=== PATIENT | female | born 1930 | race Caucasian/White ===

== ENCOUNTER 2016-04-01 12:00 | Outpatient (CLI) | payer MEDICARE, BC | END 2016-04-01 12:01 | disposition home or self-care (01) | DX: L03.032 Cellulitis of left toe (principal); L30.9 Dermatitis, unspecified; L29.9 Pruritus, unspecified; F01.51 Vascular dementia, unspecified severity, with behavioral disturbance; Z99.3 Dependence on wheelchair; Z51.5 Encounter for palliative care ==

== ENCOUNTER 2016-04-07 13:05 | Outpatient (CLI) | payer MEDICARE, BC | END 2016-04-07 13:06 | disposition home or self-care (01) | DX: L03.032 Cellulitis of left toe (principal); L30.9 Dermatitis, unspecified; L29.9 Pruritus, unspecified; F01.51 Vascular dementia, unspecified severity, with behavioral disturbance; Z51.5 Encounter for palliative care ==

== ENCOUNTER 2016-05-05 | Outpatient (CLI) | payer MEDICARE, BC | END 2016-05-05 11:46 | disposition home or self-care (01) ==

== ENCOUNTER 2016-06-09 12:50 | Outpatient (CLI) | payer MEDICARE, BC | END 2016-06-09 12:51 | disposition home or self-care (01) | DX: Z51.5 Encounter for palliative care (principal); R21 Rash and other nonspecific skin eruption; E11.621 Type 2 diabetes mellitus with foot ulcer; L97.519 Non-pressure chronic ulcer of other part of right foot with unspecified severity; F01.51 Vascular dementia, unspecified severity, with behavioral disturbance; I25.10 Atherosclerotic heart disease of native coronary artery without angina pectoris; Z87.898 Personal history of other specified conditions; I69.318 Other symptoms and signs involving cognitive functions following cerebral infarction; Z99.3 Dependence on wheelchair ==

== ENCOUNTER 2016-06-25 13:45 | Outpatient (CLI) | payer MEDICARE, BC | END 2016-06-25 13:46 | disposition home or self-care (01) | DX: Z51.5 Encounter for palliative care (principal); S90.821A Blister (nonthermal), right foot, initial encounter; X58.XXXA Exposure to other specified factors, initial encounter; R21 Rash and other nonspecific skin eruption; F01.51 Vascular dementia, unspecified severity, with behavioral disturbance; E11.621 Type 2 diabetes mellitus with foot ulcer; L97.529 Non-pressure chronic ulcer of other part of left foot with unspecified severity; I73.9 Peripheral vascular disease, unspecified; I25.10 Atherosclerotic heart disease of native coronary artery without angina pectoris; Z87.898 Personal history of other specified conditions; Z86.73 Personal history of transient ischemic attack (TIA), and cerebral infarction without residual deficits; Z99.3 Dependence on wheelchair ==

== ENCOUNTER 2016-07-02 10:30 | Outpatient (CLI) | payer MEDICARE, BC | END 2016-07-02 23:59 | DX: Z51.5 Encounter for palliative care (principal); S90.821D Blister (nonthermal), right foot, subsequent encounter; S91.102D Unspecified open wound of left great toe without damage to nail, subsequent encounter; S91.105D Unspecified open wound of left lesser toe(s) without damage to nail, subsequent encounter; R21 Rash and other nonspecific skin eruption; R63.4 Abnormal weight loss; R63.0 Anorexia; I73.9 Peripheral vascular disease, unspecified; F01.50 Vascular dementia, unspecified severity, without behavioral disturbance, psychotic disturbance, mood disturbance, and anxiety; I25.10 Atherosclerotic heart disease of native coronary artery without angina pectoris; Z86.73 Personal history of transient ischemic attack (TIA), and cerebral infarction without residual deficits; Z87.898 Personal history of other specified conditions; Z99.3 Dependence on wheelchair ==

== ENCOUNTER 2016-07-17 06:29 | Outpatient (CLI) | payer MEDICARE, BC | END 2016-07-17 06:30 | disposition critical access hospital (66) | DX: M25.551 Pain in right hip (principal); W19.XXXA Unspecified fall, initial encounter; Y92.198 Other place in other specified residential institution as the place of occurrence of the external cause | CPT/HCPCS: A0425; A0429 ==

== ENCOUNTER 2016-07-17 06:51 | Inpatient (IN) | payer MEDICARE, BC ==
[2016-07-17] MEDS ORDERED: MORPHINE 2 MG/ML SYRINGE IVP STA (07:23)
[2016-07-17] MEDS ORDERED: MORPHINE 2 MG/ML SYRINGE ONE (07:31)
[2016-07-17] MEDS ORDERED: ACETAMINOPHEN 325 MG TABLET PO PRN (10:23)
[2016-07-17] MEDS ORDERED: ONDANSETRON 4 MG/2 ML VIAL IVP PRN (10:23)
[2016-07-17] MEDS: MORPHINE 2 MG/ML SYRINGE IVP PRN ×5 (12:48→22:02)
[2016-07-17] MEDS: D5.45NS W/20 MEQ KCL 1,000 ML IV SCH (12:48)
[2016-07-17] MEDS: SODIUM CHLORIDE FLUSH 0.9% 10 ML SYRINGE IVP PRN (12:49)
[2016-07-17] MEDS: SODIUM CHLORIDE FLUSH 0.9% 10 ML SYRINGE IVP SCH ×2 (15:01→20:41)
[2016-07-17] MEDS ORDERED: hydrOXYzine PAMOATE 25 MG CAPSULE PO PRN (16:29)
[2016-07-17] MEDS: metFORMIN 500 MG TABLET PO SCH (17:06)
[2016-07-17] MEDS: HEPARIN 5,000 UNIT/ML VIAL SUBQ SCH (20:34)
[2016-07-17] MEDS: METOPROLOL TARTRATE 25 MG TABLET PO SCH (20:37)
[2016-07-17] MEDS: ATORVASTATIN 10 MG TABLET PO SCH (20:38)
[2016-07-17] MEDS: GABAPENTIN 100 MG CAPSULE PO SCH (20:39)
[2016-07-17] MEDS: DOXEPIN 25 MG CAPSULE PO SCH (20:40)
[2016-07-17] MEDS: INSULIN ASPART 300 UNIT/3 ML PEN SUBQ SCH (20:41)
[2016-07-18] MEDS: D5.45NS W/20 MEQ KCL 1,000 ML IV SCH ×3 (00:12→21:41)
[2016-07-18] MEDS: MORPHINE 2 MG/ML SYRINGE IVP PRN ×4 (01:38→19:58)
[2016-07-18] MEDS: SODIUM CHLORIDE FLUSH 0.9% 10 ML SYRINGE IVP SCH ×3 (05:15→19:59)
[2016-07-18] MEDS ORDERED: metFORMIN 500 MG TABLET PO SCH (08:00)
[2016-07-18] MEDS ORDERED: DOCUSATE SODIUM 250 MG CAPSULE PO ONE (09:00)
[2016-07-18] MEDS ORDERED: FAMOTIDINE 20 MG TABLET PO SCH (09:00)
[2016-07-18] MEDS ORDERED: SENNA 8.6 MG TABLET PO ONE (09:00)
[2016-07-18] MEDS: HEPARIN 5,000 UNIT/ML VIAL SUBQ SCH ×2 (09:03→20:01)
[2016-07-18] MEDS: POLYETHYLENE GLYCOL 3350 17 GM PACKET PO SCH (09:06)
[2016-07-18] MEDS: INSULIN ASPART 300 UNIT/3 ML PEN SUBQ SCH ×4 (09:06→21:41)
[2016-07-18] MEDS: METOPROLOL TARTRATE 25 MG TABLET PO SCH ×2 (09:07→20:01)
[2016-07-18] MEDS: FERROUS SULFATE 325 MG TABLET PO SCH (09:07)
[2016-07-18] MEDS: MULTIVITAMIN TABLET PO SCH (09:07)
[2016-07-18] MEDS: FAMOTIDINE 20 MG TABLET PO SCH (09:07)
[2016-07-18] MEDS: LEVOTHYROXINE 25 MCG TABLET PO SCH (09:07)
[2016-07-18] MEDS: CYANOCOBALAMIN 500 MCG TABLET PO SCH (09:07)
[2016-07-18] MEDS: ASPIRIN EC 81 MG TABLET PO SCH (09:07)
[2016-07-18] MEDS: SERTRALINE 50 MG TABLET PO SCH (09:07)
[2016-07-18] MEDS: ASCORBIC ACID CHEW 500 MG TABLET PO SCH (09:12)
[2016-07-18] MEDS: SODIUM CHLORIDE FLUSH 0.9% 10 ML SYRINGE IVP PRN (09:13)
[2016-07-18] MEDS: metFORMIN 500 MG TABLET PO SCH (16:56)
[2016-07-18] MEDS: ATORVASTATIN 10 MG TABLET PO SCH (20:01)
[2016-07-18] MEDS: GABAPENTIN 100 MG CAPSULE PO SCH (20:02)
[2016-07-18] MEDS: DOXEPIN 25 MG CAPSULE PO SCH (20:02)
[2016-07-19] MEDS: MORPHINE 2 MG/ML SYRINGE IVP PRN ×5 (01:35→20:54)
[2016-07-19] MEDS: D5.45NS W/20 MEQ KCL 1,000 ML IV SCH ×3 (05:13→23:43)
[2016-07-19] MEDS: SODIUM CHLORIDE FLUSH 0.9% 10 ML SYRINGE IVP SCH ×3 (05:14→20:54)
[2016-07-19] MEDS: INSULIN REGULAR HUMAN 100 UNIT/1 ML 10 ML MDV SUBQ SCH ×2 (05:45→12:04)
[2016-07-19] MEDS ORDERED: LACTATED RINGERS 1,000 ML IV ONE ×2 (09:09→10:56)
[2016-07-19] MEDS: FERROUS SULFATE 325 MG TABLET PO SCH (09:32)
[2016-07-19] MEDS: ASCORBIC ACID CHEW 500 MG TABLET PO SCH (09:33)
[2016-07-19] MEDS: FAMOTIDINE 20 MG TABLET PO SCH (09:33)
[2016-07-19] MEDS: CYANOCOBALAMIN 500 MCG TABLET PO SCH (09:33)
[2016-07-19] MEDS: LEVOTHYROXINE 25 MCG TABLET PO SCH (09:33)
[2016-07-19] MEDS: ASPIRIN EC 81 MG TABLET PO SCH (09:33)
[2016-07-19] MEDS: POLYETHYLENE GLYCOL 3350 17 GM PACKET PO SCH (09:34)
[2016-07-19] MEDS: MULTIVITAMIN TABLET PO SCH (09:34)
[2016-07-19] MEDS: METOPROLOL TARTRATE 25 MG TABLET PO SCH ×2 (09:34→20:49)
[2016-07-19] MEDS: HEPARIN 5,000 UNIT/ML VIAL SUBQ SCH (09:34)
[2016-07-19] MEDS: SERTRALINE 50 MG TABLET PO SCH (09:35)
[2016-07-19] MEDS ORDERED: BUPIVACAINE 0.25%-EPI 1:200000 PF 30 ML VIAL SUBQ ONE ×2 (09:59→11:00)
[2016-07-19] MEDS ORDERED: ONDANSETRON 4 MG/2 ML VIAL IVP ONE (10:05)
[2016-07-19] MEDS ORDERED: ROCURONIUM 50 MG/5 ML VIAL IVP ONE (10:05)
[2016-07-19] MEDS ORDERED: ceFAZolin 1 GM VIAL IV ONE (10:05)
[2016-07-19] MEDS ORDERED: hydrALAZINE INJ 20 MG/ML VIAL IVP ONE (10:05)
[2016-07-19] MEDS ORDERED: PROPOFOL 200 MG/20 ML VIAL IVP ONE (10:05)
[2016-07-19] MEDS ORDERED: TRANEXAMIC ACID 1,000 MG/10 ML VIAL IV ONE (10:05)
[2016-07-19] MEDS ORDERED: ACETAMINOPHEN 1,000 MG/100 ML VIAL IV ONE (10:05)
[2016-07-19] MEDS ORDERED: ePHEDrine 50 MG/ML AMP IVP ONE (10:05)
[2016-07-19] MEDS ORDERED: fentaNYL 100 MCG/2 ML VIAL IVP ONE (10:05)
[2016-07-19] MEDS ORDERED: MIDAZOLAM 2 MG/2 ML VIAL IVP ONE (10:05)
[2016-07-19] MEDS ORDERED: METOPROLOL 5 MG/5 ML VIAL IVP ONE (10:05)
[2016-07-19] MEDS ORDERED: LIDOCAINE-MPF 2% 5 ML VIAL IM ONE (10:05)
[2016-07-19] MEDS ORDERED: SUCCINYLCHOLINE 200 MG/10 ML VIAL IVP ONE (10:05)
[2016-07-19] MEDS ORDERED: ONDANSETRON 4 MG/2 ML VIAL IVP PRN (11:22)
[2016-07-19] MEDS ORDERED: PROCHLORPERAZINE 10 MG/2 ML VIAL IVP PRN (11:22)
[2016-07-19] MEDS: SODIUM CHLORIDE FLUSH 0.9% 10 ML SYRINGE IVP PRN ×4 (12:24→20:07)
[2016-07-19] MEDS: CIPROFLOXACIN 400 MG/200 ML 200 ML IV SCH (16:16)
[2016-07-19] MEDS: ceFAZolin 2 GM/50 ML 50 ML IV SCH (20:05)
[2016-07-19] MEDS: ATORVASTATIN 10 MG TABLET PO SCH (20:51)
[2016-07-19] MEDS: GABAPENTIN 100 MG CAPSULE PO SCH (20:52)
[2016-07-19] MEDS: DOXEPIN 25 MG CAPSULE PO SCH (20:52)
[2016-07-19] MEDS: INSULIN ASPART 300 UNIT/3 ML PEN SUBQ SCH (20:55)
[2016-07-19] MEDS ORDERED: INSULIN REGULAR HUMAN 100 UNIT/1 ML 10 ML MDV SUBQ SCH (21:00)
[2016-07-20] MEDS: MORPHINE 2 MG/ML SYRINGE IVP PRN ×5 (00:31→20:30)
[2016-07-20] MEDS: ceFAZolin 2 GM/50 ML 50 ML IV SCH (04:07)
[2016-07-20] MEDS: CIPROFLOXACIN 400 MG/200 ML 200 ML IV SCH (04:56)
[2016-07-20] MEDS: SODIUM CHLORIDE FLUSH 0.9% 10 ML SYRINGE IVP SCH ×3 (05:17→20:09)
[2016-07-20] MEDS: SENNA 8.6 MG TABLET PO SCH (08:40)
[2016-07-20] MEDS: FERROUS SULFATE 325 MG TABLET PO SCH (08:40)
[2016-07-20] MEDS: METOPROLOL TARTRATE 25 MG TABLET PO SCH ×2 (08:40→20:09)
[2016-07-20] MEDS: LEVOTHYROXINE 25 MCG TABLET PO SCH (08:40)
[2016-07-20] MEDS: POLYETHYLENE GLYCOL 3350 17 GM PACKET PO SCH (08:40)
[2016-07-20] MEDS: CYANOCOBALAMIN 500 MCG TABLET PO SCH (08:41)
[2016-07-20] MEDS: ASPIRIN EC 81 MG TABLET PO SCH (08:41)
[2016-07-20] MEDS: FAMOTIDINE 20 MG TABLET PO SCH (08:41)
[2016-07-20] MEDS: ASCORBIC ACID CHEW 500 MG TABLET PO SCH (08:41)
[2016-07-20] MEDS: SERTRALINE 50 MG TABLET PO SCH (08:41)
[2016-07-20] MEDS: MULTIVITAMIN TABLET PO SCH (08:41)
[2016-07-20] MEDS: DOCUSATE SODIUM 250 MG CAPSULE PO SCH (08:50)
[2016-07-20] MEDS: INSULIN ASPART 300 UNIT/3 ML PEN SUBQ SCH ×4 (08:54→20:15)
[2016-07-20] MEDS: ACETAMINOPHEN 1,000 MG/100 ML 100 ML IV PRN ×2 (08:58→16:48)
[2016-07-20] MEDS ORDERED: LACTULOSE 10 GM /15 ML UDC PO ONE (14:45)
[2016-07-20] MEDS: D5.45NS W/20 MEQ KCL 1,000 ML IV SCH (14:54)
[2016-07-20] MEDS: ATORVASTATIN 10 MG TABLET PO SCH (20:08)
[2016-07-20] MEDS: DOXEPIN 25 MG CAPSULE PO SCH (20:08)
[2016-07-20] MEDS: GABAPENTIN 100 MG CAPSULE PO SCH (20:08)
[2016-07-21] MEDS: AMOXICILLIN 250 MG CAPSULE PO SCH ×3 (00:19→12:45)
[2016-07-21] MEDS: D5.45NS W/20 MEQ KCL 1,000 ML IV SCH ×2 (00:28→11:20)
[2016-07-21] MEDS: MORPHINE 2 MG/ML SYRINGE IVP PRN (06:21)
[2016-07-21] MEDS: SODIUM CHLORIDE FLUSH 0.9% 10 ML SYRINGE IVP SCH ×2 (06:21→12:02)
[2016-07-21] MEDS: SODIUM CHLORIDE FLUSH 0.9% 10 ML SYRINGE IVP PRN (06:22)
[2016-07-21] MEDS: ACETAMINOPHEN 1,000 MG/100 ML 100 ML IV PRN (07:36)
[2016-07-21] MEDS: ASPIRIN EC 81 MG TABLET PO SCH (08:00)
[2016-07-21] MEDS: MULTIVITAMIN TABLET PO SCH (08:01)
[2016-07-21] MEDS: ASCORBIC ACID CHEW 500 MG TABLET PO SCH (08:01)
[2016-07-21] MEDS: FAMOTIDINE 20 MG TABLET PO SCH (08:01)
[2016-07-21] MEDS: LEVOTHYROXINE 25 MCG TABLET PO SCH (08:01)
[2016-07-21] MEDS: FERROUS SULFATE 325 MG TABLET PO SCH (08:01)
[2016-07-21] MEDS: INSULIN ASPART 300 UNIT/3 ML PEN SUBQ SCH ×2 (08:02→12:02)
[2016-07-21] MEDS: CYANOCOBALAMIN 500 MCG TABLET PO SCH (08:02)
[2016-07-21] MEDS: DOCUSATE SODIUM 250 MG CAPSULE PO SCH (08:02)
[2016-07-21] MEDS: SENNA 8.6 MG TABLET PO SCH (08:02)
[2016-07-21] MEDS: METOPROLOL TARTRATE 25 MG TABLET PO SCH (08:02)
[2016-07-21] MEDS: POLYETHYLENE GLYCOL 3350 17 GM PACKET PO SCH (08:03)
[2016-07-21] MEDS: SERTRALINE 50 MG TABLET PO SCH (08:07)
== END 2016-07-21 14:00 | DRG 481 ==
PROC: 0QS606Z Reposition Right Upper Femur with Intramedullary Internal Fixation Device, Open Approach (ICD-10-PCS; principal; 2016-07-19 09:00)
DX: S72.141A Displaced intertrochanteric fracture of right femur, initial encounter for closed fracture (principal); N39.0 Urinary tract infection, site not specified; D64.9 Anemia, unspecified; E78.00 Pure hypercholesterolemia, unspecified; F01.50 Vascular dementia, unspecified severity, without behavioral disturbance, psychotic disturbance, mood disturbance, and anxiety; I25.10 Atherosclerotic heart disease of native coronary artery without angina pectoris; E11.9 Type 2 diabetes mellitus without complications; W18.30XA Fall on same level, unspecified, initial encounter; K21.9 Gastro-esophageal reflux disease without esophagitis; B96.20 Unspecified Escherichia coli [E. coli] as the cause of diseases classified elsewhere; I10 Essential (primary) hypertension; Z16.23 Resistance to quinolones and fluoroquinolones; N28.9 Disorder of kidney and ureter, unspecified; E03.9 Hypothyroidism, unspecified; F32.9 Major depressive disorder, single episode, unspecified; L29.9 Pruritus, unspecified; I25.2 Old myocardial infarction; Z91.81 History of falling; Y93.9 Activity, unspecified; Y92.129 Unspecified place in nursing home as the place of occurrence of the external cause; Y99.9 Unspecified external cause status; Z79.02 Long term (current) use of antithrombotics/antiplatelets; Z79.82 Long term (current) use of aspirin; Z79.84 Long term (current) use of oral hypoglycemic drugs; Z87.891 Personal history of nicotine dependence; Z87.898 Personal history of other specified conditions; Z86.73 Personal history of transient ischemic attack (TIA), and cerebral infarction without residual deficits; Z99.3 Dependence on wheelchair; Z66 Do not resuscitate

== ENCOUNTER 2016-07-21 14:10 | Outpatient (CLI) | payer MEDICARE, BC | END 2016-07-21 14:11 | DX: R53.1 Weakness (principal); F03.90 Unspecified dementia, unspecified severity, without behavioral disturbance, psychotic disturbance, mood disturbance, and anxiety; M25.551 Pain in right hip; Z98.890 Other specified postprocedural states | CPT/HCPCS: A0425; A0428 ==

== ENCOUNTER 2016-08-04 13:30 | Outpatient (CLI) | payer BC, MEDICARE, OTHER | END 2016-08-04 23:59 | disposition home or self-care (01) | LOC: LAB.R 13:30 | PROVIDERS: ATTEND Internal Medicine | DX: A04.7 Enterocolitis due to Clostridium difficile (principal) | CPT/HCPCS: 87493 ==

== ENCOUNTER 2016-08-07 10:15 | Outpatient (CLI) | payer MEDICARE, BC ==
--- NOTE | 2016-08-11 07:00 | CONSULTATION NOTE ---
DATE OF CONSULTATION: 08/07/2016 00:00:00 REQUESTING PROVIDER: STEPHANIE Castellano TIME OF VISIT: 10:15 to 11 a.m. The patient is seen at [facility], where she is currently housed secondary to a hip fracture. It is a taxing and considerable effort for her to leave the home. I was contacted by the long-term, as patient has been doing poorly, to clarify regarding goals of care. BRIEF HISTORY OF PRESENT ILLNESS: This is a spunky 85-year-old woman, with vascular dementia with etiology most likely severe alcohol abuse, coronary artery disease with small frequent strokes. She is well known to me, as I have been following her over in [facility], which is a dementia unit, since 12/2015. The patient had a non-witnessed ground-level fall on 07/17/2016, which resulted in a right intertrochanteric hip fracture. She did on 07/18/2016 have a open reduction internal fixation with pinning after consultation with her brother, Boaz Johnson, who is her durable power of health care attorney for medical care. Prior to her discharge, she was found to have an E coli UTI and was discharged on Augmentin over to the long-term for rehabilitation. The patient did not return back to [facility], as they are not set up to do postoperative care. She has been working with PT/OT to regain back her previous level of functioning, which was wheelchair mobility, but she was able to stand and transfer and pivot with cueing with the facility staff. Unfortunately, as a result of her hospitalization, hip fracture, and antibiotics, the patient did develop C diff. For the last several days, she has had ongoing liquid stools, which are starting to respond to the Flagyl. She has had poor appetite and weight loss despite Med Pass twice a day. Her baseline weight prior to hospitalization was 157, today she is weighing in at 144.4. In asking the patient, who is able to respond, she reports she does not feel good. She reports things do not taste good and that she is not hungry. She holds her head and seems in some distress. She does not appear to recognize me, though I look familiar. She is able and willing to interact with me for a physical exam. She does seem quite a bit weaker. Her voice is more quiet. Her sentences are less formed. She usually can carry on somewhat of a social banter; she is quite quiet today, she can answer yes/no, and she seems a little bit more "befuddled" than usual exams with me and her. She has had longstanding issues with rashes and pruritus and these continue to plague her here at her current setting. Unfortunately they had discontinued doxepin but have restarted that. She does have some scratch gracia from scratching on her upper chest area and forearms. SYMPTOM BURDEN: The patient denies pain. She is on [id number] Tylenol twice a day. She has been cooperative with staff. She has not seemed anxious, though she has been a little bit more withdrawn; unclear if this is depression or not for her. Her intake has diminished, and she does seem quite fatigued. On noting her labs on discharge from the hospital, her hemoglobin was 26 and her hematocrit 8.9. Her sodium was 138 and potassium 4.2. She has had a history of hyponatremia. REVIEW OF SYSTEMS This is somewhat limited by the patient's ability to participate, and she is in a long term facility; this is mostly obtained from staff. HEENT: No observed difficulty with choking, though she has decreased intake, has needed cueing and assistance for eating. Mild hearing loss. GASTROINTESTINAL: Stools are starting to form up. She is incontinent both of stool and urine; has been recently treated for a urinary tract infection. MUSCULOSKELETAL: She is overall weak. She does need maximum 2-person assist from sitting to standing, and transfer to the commode. She has been wheelchair bound here as well. INTEGUMENTARY: As noted above. NEUROLOGIC: She does appear to have some diminished cognitive abilities compared to baseline; it is unclear if this is because of how she is feeling, or if there are some changes. PSYCHIATRIC: She is somewhat withdrawn today. ENDOCRINE: She has underlying diabetes. Her blood sugars have been fairly well controlled, a little on the higher side. She is off her Tradjenta. PHYSICAL EXAMINATION GENERAL APPEARANCE: She does appear somewhat pale, and with temporal wasting today. She is willing to engage in conversation. HEENT: Eyes slightly dull, difficulty focusing, some periorbital edema. ENT: Her tongue is bright red, scattered with a few white dots; does report it is uncomfortable for her. Some buccal redness as well. Suspect some candidiasis. RESPIRATORY: Her breath sounds are diminished but clear. VITAL SIGNS: Her temperature is 96.8, O2 saturations on room air 98%, pulse 93, blood pressure 122/72. ABDOMEN: Soft, slightly tender to palpation. SKIN: As noted above; also has a chronic wound ulcer about 0.5 cm on her second toe. It is bright, shiny, and filled in currently. No signs or symptoms of infection. It is a very thin epithelial covering over the usual open ulcer. On her right top of her foot is probably about a 3 x 4 cm, approximately, blood blister, open area. This has been longstanding, as well. What happens is she gets blisters and they pop and has been dealing with this for several weeks to months now. It has responded in the past to Silvadene dressing changes. EXTREMITIES: Her hands and feet are quite cool to touch. She has no lower extremity edema today. IMPRESSION: This is an 85-year-old woman, with longstanding vascular dementia, who was most recently hospitalized for an acute hip fracture. She does appear to have had both physical and cognitive decline resulting from this episode. She has also had the sequelae of antibiotic therapy with oral candidiasis and Clostridium difficile. She has had about an 8% to 9% weight loss, and concern for her is certainly a failure to thrive. RECOMMENDATIONS/COUNSELING DONE 1. Protein-calorie malnutrition. Patient presenting with weight loss. We will go ahead and increase her Med Pass 2.0 from 60 mL b.i.d. to t.i.d. 2. Oral candidiasis. The patient does have a prolonged QTc. We will go ahead and just put her on nystatin swish and swallow t.i.d., secondary to the difficulty getting her to cooperate at times, for 10 days to see if this improves her taste and ability to engage in eating. 3. Rash secondary to unknown etiology. She has been restarted on her doxepin. I will go ahead and cycle through her triamcinolone0.5% ointment; this does sometimes help, has helped in the past. We will have them apply to her active rash on her upper chest and arms b.i.d. for 2 weeks, then rotate it back up to the Eucerin. They are lotioning her other areas of dry skin. 4. Right foot blister on top of her foot. We will go ahead and re-initiate the Silvadene, washing with wound cleanser daily, apply Silvadene ointment, and cover with gauze. This has healed this up several times in the past. 5. Status post right hip fracture. It is unclear as far as her pain level, though certainly could be playing into some of her discomfort. We will go ahead and increase her acetaminophen up to 3 times a day. 6. Anemia, unspecified. This is unclear if it is related to blood loss or her longstanding anemia of chronic disease. She has been on B12 and iron in the past ; I will go ahead and check her labs next week, as well as followup on her history of hyponatremia. 7. Failure to thrive. The patient is doing better the last 24 hours on the Flagyl with the Clostridium difficile resolving, hopefully she will continue to improve. I have left a message for her brother to follow up on weighing the benefits and burdens for clarifying goals if patient continues to decline. I will await his call, as far as setting further goals of care. Time spent 45 minutes, with greater than 50% of this weighing benefits and burdens of different treatment options, as well as following up with staff regarding patient's underlying chronic health issues including pruritus and skin , foot ulcers, and anticipatory guidance. JOB #: [id number] EXT JOB #:[id number] ADDENDUM: Spoke SALVADOR Johnson this afternoon 08/11/2016. He understands his sister is doing poorly, he feels her vitality has been diminishing, the hip fracture just another symptom, has been more distracted the last couple of visits and feels she has been turning inwards. She is expected to transfer back to [facility], understands it is a watch and wait. Discussed part of the role of palliative care is to focus on things that might make her more comfortable, and at the appropriate time as she is declining to transition her over to hospice. In alignment with this, will get labs to get a sense of where she is with her physical well being given her weight loss and hx of anemia and hyponatremia, in agreement. Plan will see in [facility] next week. LAVINIA
== END 2016-08-07 10:16 | disposition home or self-care (01) ==
LOC: PC 10:15
PROVIDERS: ATTEND Nurse Practitioner Adult Health
DX: Z51.5 Encounter for palliative care (principal); E46 Unspecified protein-calorie malnutrition; B37.0 Candidal stomatitis; T36.0X5A Adverse effect of penicillins, initial encounter; R21 Rash and other nonspecific skin eruption; S72.141D Displaced intertrochanteric fracture of right femur, subsequent encounter for closed fracture with routine healing; S90.821A Blister (nonthermal), right foot, initial encounter; X58.XXXA Exposure to other specified factors, initial encounter; D64.9 Anemia, unspecified; F01.50 Vascular dementia, unspecified severity, without behavioral disturbance, psychotic disturbance, mood disturbance, and anxiety; R62.7 Adult failure to thrive; A04.7 Enterocolitis due to Clostridium difficile; L97.501 Non-pressure chronic ulcer of other part of unspecified foot limited to breakdown of skin; I25.10 Atherosclerotic heart disease of native coronary artery without angina pectoris; Z87.898 Personal history of other specified conditions; Z99.3 Dependence on wheelchair; Z87.440 Personal history of urinary (tract) infections; Z86.73 Personal history of transient ischemic attack (TIA), and cerebral infarction without residual deficits; E11.621 Type 2 diabetes mellitus with foot ulcer
CPT/HCPCS: 99310

== ENCOUNTER 2016-08-12 14:38 | Outpatient (CLI) | payer BC, MEDICARE, OTHER ==
[2016-08-12 09:40] LABS: BASOPHILS # (AUTO) 0.1 10^3/uL (0.0-0.1); BASOPHILS % (AUTO) 0.9 %; EOSINOPHILS # (AUTO) 1.4 10^3/uL (0.0-0.7); EOSINOPHILS % (AUTO) 11.5 %; HCT - HEMATOCRIT 36.6 % (37.0-47.0); HGB - HEMOGLOBIN 12.1 g/dL (12.0-16.0); LYMPHOCYTES # (AUTO) 2.1 10^3/uL (1.5-3.5); LYMPHOCYTES % (AUTO) 17.7 %; MEAN CORPUSCULAR HEMOGLOBIN 31.6 pg (27.0-31.0); MEAN CORPUSCULAR HGB CONC 33.1 g/dL (32.0-36.0); MEAN CORPUSCULAR VOLUME 95.3 fL (81.0-99.0); MONOCYTES % (AUTO) 8.8 %; NEUTROPHILS # (AUTO) 7.2 10^3/uL (1.5-6.6); NEUTROPHILS % (AUTO) 61.1 %; NUCLEATED RED BLOOD CELLS AUTO 0.1 /100WBC; RED BLOOD COUNT 3.84 10^6/uL (4.20-5.40); RED CELL DISTRIBUTION WIDTH 16.9 % (12.0-15.0); UNCORRECTED WHITE BLOOD COUNT 11.8 x10^3/uL; WHITE BLOOD COUNT 11.8 x10^3/uL (4.8-10.8)
[2016-08-12 09:49] LABS: BILIRUBIN,TOTAL 0.5 mg/dL (0.2-1.0); CALCIUM 9.2 mg/dL (8.5-10.3); CREATININE 0.7 mg/dL (0.4-1.0); POTASSIUM 3.8 mmol/L (3.5-5.0); TOTAL PROTEIN 6.7 g/dL (6.7-8.2)
== END 2016-08-12 14:39 | disposition home or self-care (01) ==
LOC: LAB.R 14:38
DX: D64.9 Anemia, unspecified (principal)
CPT/HCPCS: 80053; 85025

== ENCOUNTER 2016-08-18 11:00 | Outpatient (CLI) | payer MEDICARE, BC ==
--- NOTE | 2016-08-19 08:57 | CONSULTATION NOTE ---
DATE OF CONSULTATION: 08/18/2016 00:00:00 REQUESTING PROVIDER: Jasmin Ball PA-C. TIME OF VISIT: . The patient is seen at [facility], which is her home setting. It is an assisted living facility that is a dementia unit. It is a taxing and considerable effort for her to leave the home. BRIEF HISTORY OF PRESENT ILLNESS: This is an 85-year-old woman with vascular dementia with etiology m ost likely severe alcohol abuse, coronary artery disease, history of small frequent strokes. The feliciano ent had an unwitnessed ground fall on 07/17/2016 which resulted in a right trochanter hip fracture, f or which she had an open reduction internal fixation with pinning on 07/18/2016. On discharge from [facility] on 07/21/2016 she was discharged to [facility]. Unfortunately, at that point in time she had E-coli UTI for which she was on treatment for Augmentin which left her with the sequela of Clostridiu m difficile. Currently, she has finished her Flagyl, but continues to feel poorly. Since her return t o the facility mid week, she continues to be weak, fatigued, has had poor appetite and has been a lit tle bit more confused. The patient herself reports she is not sleeping well. She denies any pain at t he time of visit, but is on around the clock Tylenol. Just previous to our exam, she had had a fall, was found on the floor with her back against the foot of her bed. She had no visible traumatic injuri es. She is a 2-person assist now with transfers and previously she was weightbearing. In review with the staff they report she did not eat but took fluids this a.m. Continues to be weak. Her bowels have moved recently. No vomiting, but has had decreased intake. The patient does admit to depression, though she is unable to verbalize what is going on. She reports she feels a little bit be tter, but still feels poorly. I had seen her in the detention on 08/07/2016. She was doing poorly at that point in time as well, less clear with her sentences and more confused. She does appear a lit tle bit improved from our last interaction, but remains quite frail and fragile. REVIEW OF SYSTEMS: This is limited by the patient's ability to participate. HEENT: She has had decreased intake, though her weight has remained stable from discharge on [facility] at 144.2. GASTROINTESTINAL: She had a bowel movement yesterday. No further loose stool. She is incontinent of b oth urine and stool. MUSCULOSKELETAL: She is overall weak. She continues to be a maximum 2-person assist. Previous to her fall, she was able to transfer with just cuing. She has remained mostly wheelchair bound. INTEGUMENTARY: She reports the itching is less. NEUROLOGIC: She just appears much more slow, difficulty with answering questions and nods off to slee p quite easily. PSYCHIATRIC: She does admit to depression and does appear somewhat withdrawn. ENDOCRINE: She did have her blood sugars taken for a week and they remained in the 120-160 range. PHYSICAL EXAMINATION: GENERAL APPEARANCE: She does appear somewhat pale, does have some temporal wasting, does nod off quit e frequently during the exam. EYES: Slightly dull, difficulty focusing, some periorbital edema. ENT: Her tongue is beefy red. No further signs or symptoms of candidiasis, though does appear dry. RESPIRATORY: The patient does have difficulty taking deep breath, her breath sounds appear to be dimi nished but clear. No wheezing, rhonchi, or crackles appreciated. VITAL SIGNS: Temperature is 96.8, pulse 83 and regular. O2 saturation on room air 97%, blood pressure was 100/60. ABDOMEN: Bowel tones positive. SKIN: Her rash has abated dramatically, no raised pustules, does appear to be much improved. Her smal l chronic wound ulcer on her second toe appears to have healed on the right of her top right foot and the area is filled in, no moist skin noted at this point it is about a 2 x 3 cm area, it was previou sly appeared to be a blood blister. Dressing has not been changed since 08/10/2016. EXTREMITIES: Her hands and feet were cool to touch. She has no lower extremity edema. IMPRESSION: This is an 85-year-old woman with longstanding vascular dementia, most recently hospitali [facility] for an acute hip fracture. She does appear to have both physical and cognitive decline resulting from this episode. She has had about 8-9% weight loss and concern remains for failure to thrive. RECOMMENDATIONS/COUNSELING DONE: 1. Asked them to monitor daily weights and encourage intake and fluids. She is getting Ensure twice a day. We will go ahead and monitor her success on this. 2. Oral candidiasis, as this does appear to have resolved. 3. Rash secondary to underlying unknown etiology. She has restarted on her doxepin at bedtime. This h as appeared to have helped with the pruritus. I will go ahead and discontinue the triamcinolone at th is point in time and move on to the Eucerin. 4. Right foot blister on top of foot. Did remind them to continue with the Silvadene dressing ointmen t changes daily until resolved. I suspect this is only a few more days. 5. Status post right hip fracture. It does seem to have affected her baseline functioning. She has a maximum 2-person assist from her previous ability to independently pivot. It is unclear if they are g oing to continue with physical therapy. She would probably benefit from some strengthening to make he r transfers more safe and maintain what little functional status she has. 6. Failure to thrive. The patient continues to be very fragile. She has finished her Flagyl and antib iotics. The patient is certainly at risk for the sequela of a recurrent infection. Currently, though, will monitor her for the next week. She does have followup with her orthopaedic surgeon this week as well. I did leave a message for DPOA, Boaz Johnson, just in followup. TIME SPENT: Forty-five minutes with greater than 50% of this [facility] her [facility] setting. Followup with staff regarding the patient's underlyin g chronic health issues including skin, foot ulcers and anticipatory guidance. JOB #: [id number] EXT JOB #:[id number]
== END 2016-08-18 11:01 | disposition home or self-care (01) ==
LOC: PC 11:00
PROVIDERS: ATTEND Nurse Practitioner Adult Health
DX: Z51.5 Encounter for palliative care (principal); R21 Rash and other nonspecific skin eruption; S90.821D Blister (nonthermal), right foot, subsequent encounter; R62.7 Adult failure to thrive; F01.50 Vascular dementia, unspecified severity, without behavioral disturbance, psychotic disturbance, mood disturbance, and anxiety; Z98.890 Other specified postprocedural states; R53.1 Weakness; F32.9 Major depressive disorder, single episode, unspecified; R15.9 Full incontinence of feces; R32 Unspecified urinary incontinence; Z99.3 Dependence on wheelchair

== ENCOUNTER 2016-09-07 13:30 | Outpatient (CLI) | payer MEDICARE, BC ==
--- NOTE | 2016-09-08 05:58 | CONSULTATION NOTE ---
DATE OF CONSULTATION: 09/07/2016 00:00:00 REQUESTING PROVIDER: Jasmin Ball PA-C TIME OF VISIT 1320 to 1405 hours. The patient is seen in her home setting, which is assisted living facility at the dementia unit. It i s a taxing and considerable effort for her to leave the home. Records reviewed from facility. History obtained from patient and nursing staff. EXAMINATION LIMITATIONS: Patient with vascular dementia and language barrier. HISTORY OF PRESENT ILLNESS UPDATE: This is an 85-year-old with vascular dementia, etiology most likel y severe alcohol abuse, coronary artery disease, and history of small frequent strokes. She had an un witnessed ground fall on 07/17/2016, fracturing her right hip trochanter and underwent an ORIF on 08/2016. She was discharged to [facility] correction facility for rehabilitation, and was also reji christiano for a UTI. She subsequently had been infected with C difficile, treated with Flagyl, and has curr ently no other signs of infection or C difficile. The sequelae of various medical situations and reji tments increased fatigue and weakness, along with feelings of depression, with loss of appetite and s ubsequent weight loss. Her weight has remained stable at around 140 pounds. She was started on 2016 on mirtazapine 7.5 mg and then increased to 15 mg, and since that time has had no further weight loss. She does report that her depression is better. Her pain is okay, though she does feel some isha n in her right foot, which is chronic, connected to the recurrent wound on her dorsal surface. She al so has some numbness of both feet. She suffers from chronic insomnia and says that it has worsened ov er the past few weeks. Nursing staff report her nutritional intake remains low, has been her norm the past several weeks, sh e is eating about 25% less. She is encouraged to drink her Ensure twice a day, but she reports she do es not like it. Despite continuing low appetite, she appears much more energetic, alert, and talkativ e than at her previous visit on 08/18/2016 and appears closer back to her baseline. She states she do es feel better. SOCIAL SITUATION: She does live in assisted living, has been supported at [facility] for several years now. Her support system is her brother, Boaz Johnson, who is her DPO medical lacquer sizer. REVIEW OF SYSTEMS This is limited by the patient's ability to participate, overall, this has also been added to with [facility] [place] staff. CONSTITUTIONAL: Reports poor appetite and weight loss which has destabilized. GASTROINTESTINAL: Denies abdominal pain, constipation, diarrhea, nausea, or vomiting. GENITOURINARY: Denies dysuria. NEUROLOGIC: Does report numbness, both feet. PSYCHIATRIC: Reports depression has improved. All other systems were reviewed and negative, as it is limited by her ability to participate. PHYSICAL EXAMINATION VITAL SIGNS: Temperature 96.8, pulse 81, blood pressure 120/70. GENERAL APPEARANCE: Positive, no acute signs of distress, and quite alert. HEENT: Pharynx is normal. No signs of dehydration. No signs or symptoms of oral lesions. NECK: No JVD. Trachea is midline. RESPIRATORY: No respiratory distress. Breath sounds diminished in bilateral lower lobes. No crackles, wheezing, or rhonchi. CARDIOVASCULAR: Regular rate and rhythm. ABDOMEN: Nontender. No organomegaly. Abnormal bowel sounds, slightly hypoactive. SKIN: Currently her rash is resolved. Previous rash on both her thorax and extremities. Bilateral ski n on her extremities is cold to touch, and as well she does have healing blistered area that is disco lored, but no further signs of alteration of the skin integrity, other than color. EXTREMITIES: Left lower extremity is cold to touch. NEUROLOGIC/PSYCHIATRIC: Mood is pleasant. She is talkative and alert, wanting to participate in the c onversation; again improved. MEDICATIONS ALLERGIES The patient's allergies: 1. VOLTAREN. 2. METOCLOPRAMIDE. 3. IODINE. 4. DILTIAZEM. 5. CALCIUM CHANNEL-BLOCKERS. 6. BRILLIANT BLUE FCF. CURRENT MEDICATION List includes: 1. Acetaminophen 325 mg 2 tabs t.i.d. 2. Clopidogrel 75 mg daily. 3. Doxepin 25 mg at bedtime. 4. Ensure liquids 1 can b.i.d. 5. Ranitidine 40 mg 0.5 tabs daily. 6. Levothyroxine 50 mcg daily. 7. Metformin 500 mg in the morning, 1000 mg in the evening. 8. Metoprolol tartrate 25 mg half tab b.i.d. 9. Antacid 30 mL q.4 hours p.r.n. complaints of stomach pain and heartburn. 10. Bisacodyl suppository 10 mg daily p.r.n. 11. Hydrocodone/APAP 5/325 mg half tab every 4 hours as needed for breakthrough pain. 12. Hydroxyzine 25 mg q.6 hours as needed for itching. 13. Loperamide 2 mg 2 tabs after initial loose stools, then 1 tab after each loose stool, up to 8 in 24 hours. 14. Milk of mag 30 mL p.r.n. constipation. 15. Nitrostat 0.4 mg 1 tablet sublingual every 5 minutes as needed for chest pain, up to 3 doses. 16. Mirtazapine 15 mg daily. 17. Multivitamin daily. 18. Eucerin applied to back and legs b.i.d. daily. 19. Triamcinolone 0.5% cream 2 times daily before and after bedtime any areas of irritation. CODE STATUS: The patient has a POLST, which is DO NOT ATTEMPT RESUSCITATION, COMFORT MEASURES ONLY. SYMPTOM BURDEN: Her pain does remain improved; does not complain of hip pain, just some tenderness in her lower extremities. Drowsiness/sedation: Does not appear to have any. Denies nausea. Depression: Reports feels better. No depressive symptoms, more energy, and readily participates in conversation a nd exam. Anxiety: No signs and symptoms. Dyspnea: Denies. Anorexia: Moderate; she has had some weight loss, though it does appear stable. Nursing reports 25% or less of her meals eaten. Insomnia: Report s sleeps poorly. Her chronic insomnia is worsened, difficulty falling asleep. Denies constipation. Fe elings of well-being and perceived quality of life are improved. PERFORMANCE STATUS: Previously when I saw patient on discharge from [facility], she was much more fatigu ed, unresponsive to conversation, depressed mood; was a 2-person assist for transfers. Currently is m oving towards getting Home Health Physical Therapy to start to try and strengthen lower extremities f or independent transfers with cueing and to evaluate for appropriate home exercise program. DISCUSSION: I did speak with SALVADOR Paredes; he has not visited her recently. Noted that during the visit though several weeks ago, she was turning "inward;" was relieved to hear today that she wa s alert and doing well. By her own report, it has been a while since he had visited her. He did notic e, though, at his last visit that she had difficulty swallowing and had the food just remaining in he r mouth. This is not reported by nursing staff at this point in time. IMPRESSION: An 86-year-old woman with longstanding vascular dementia, recent hip fracture surgery wit h complicated recovery. Today she appears improved with less depression and increased alertness. Her recent weight loss appears to have positively reacted to mirtazapine, with weight remaining stable at around 140 pounds. She is expecting physical therapy to begin tomorrow with the goal of improving pi vot and transferring. The pain is currently under control, though with some complaint of numbness in lower extremities. RECOMMENDATIONS/COUNSELING DONE 1. Anorexia, stable. Though continues to eat less than 25% of the meal, we will continue the mirtazap ine, can titrate if needed. We will follow up with Home Health physical therapy, if do need, follow u p with [facility], can add it to her plan of care based on brother's concerns. 2. Protein-calorie malnutrition. Weight has been stable at 140 pounds for 2 weeks; we will decrease w eights from daily to weekly, continue the Ensure twice daily, have nursing staff offer chocolate stra wberry flavors in hopes that patient will help to comply. 3. Insomnia. We will reschedule mirtazapine, doxepin and Tylenol will be administered later in the ev ening closer to bedtime, 8-10 p.m., instead of 6-10 p.m. 4. Depression, does appear improved sertraline was replaced with mirtazapine, continue mirtazapine at current dosage, though can increase it as indicated. 5. Rash appears to be completely resolved. Continue doxepin for pruritus at current dosage related to history. 6. Candidiasis, oral, resolved. 7. Right foot blisters continue to resolve. Continue to monitor. 8. Numbness in both feet. Symptoms are mild. We will monitor. If symptoms persist or worsen, can re-a dd the gabapentin. She has been on this in the past but at present, the goal is not add to pill burde n or risk the sedation. 9. Status post right hip fracture. No complaints of pain. We will be working with Physical Therapy, i n view of the Tylenol 650 mg three times a day per schedule. Consider decreasing doses or switching t o p.r.n. if pain remains under control, we will continue currently, though, until Physical Therapy flowers s been in for a couple of weeks. She has not used hydrocodone/APAP, and facility can discontinue afte r 3 months of non-usage. [id number]: Home Health Physical Therapy. Patient is homebound secondary to the considerable and ta venecia effort to leave the home. She is mostly wheelchair bound. Her previous level of function had bee n able to stand and pivot with only contact assist and cuing. Currently she takes 1-2 people and has diminished weightbearing ability. Goal is to provided lower extremity strengthening, safety, training with staff, and hope to return back to baseline. Physical therapy would be indicated; will also have Physical Therapy evaluate for OT needs if appears would benefit for feeding, as well as speech thera py if swallowing deficits or concerns are further identified to follow up with MD. Time spent 45 minutes, with greater than 50% of this done in counseling with nursing staff, as far as meeting patient's current care needs, followup with brother, and providing psychosocial support and evaluation for depression, as well as anticipatory guidance for staff. JOB #: [id number] EXT JOB #:[id number]
== END 2016-09-07 13:31 | disposition home or self-care (01) ==
LOC: PC 13:30
PROVIDERS: ATTEND Nurse Practitioner Adult Health
DX: Z51.5 Encounter for palliative care (principal); E46 Unspecified protein-calorie malnutrition; G47.00 Insomnia, unspecified; F32.9 Major depressive disorder, single episode, unspecified; R23.8 Other skin changes; R20.0 Anesthesia of skin; S72.111D Displaced fracture of greater trochanter of right femur, subsequent encounter for closed fracture with routine healing; F01.50 Vascular dementia, unspecified severity, without behavioral disturbance, psychotic disturbance, mood disturbance, and anxiety; I25.10 Atherosclerotic heart disease of native coronary artery without angina pectoris; Z87.898 Personal history of other specified conditions; Z86.73 Personal history of transient ischemic attack (TIA), and cerebral infarction without residual deficits; Z91.81 History of falling; Z86.19 Personal history of other infectious and parasitic diseases; Z79.891 Long term (current) use of opiate analgesic; Z66 Do not resuscitate; Z99.3 Dependence on wheelchair

== ENCOUNTER 2016-09-18 16:30 | Outpatient (CLI) | payer MEDICARE, BC | END 2016-09-18 16:31 | disposition home or self-care (01) | LOC: PC 16:30 | PROVIDERS: ADMIT Internal Medicine; ATTEND Nurse Practitioner | DX: Z51.5 Encounter for palliative care (principal); R53.83 Other fatigue; R06.02 Shortness of breath; R63.0 Anorexia; Z72.820 Sleep deprivation; F03.90 Unspecified dementia, unspecified severity, without behavioral disturbance, psychotic disturbance, mood disturbance, and anxiety; R53.1 Weakness; I25.119 Atherosclerotic heart disease of native coronary artery with unspecified angina pectoris ==

== ENCOUNTER 2016-10-09 13:30 | Outpatient (CLI) | payer MEDICARE, BC ==
--- NOTE | 2016-10-09 18:56 | PROVIDER PROGRESS NOTE ---
Palliative Care Follow Up - Referral Referring Provider: Jasmin Ball PA-C Time of Visit: 13:30 Referral setting: Assisted living (Patient is seen in her home setting, which is an assisted living facility at the dementia unit. It is a taxing and cosiderable effort for her to leave the home. Records reviewed from facility.) - Information Sources Records Reviewed: RN notes reviewed History obtained from: Patient, Other (Nursing staff) Exam limitations: Clinical condition (Dementia) - History of Present Illness Update Brief HPI Update: This is a pleasant 85-yearold woman with vascular dementia, etiology most likely severe alcohol abuse, coronary artery disease, and history of small frequent strokes. In July 2016 she fell and fractured her R hip trochanter s/p ORIF on 07/18/2016, and during rehabilitation at [facility] contracted C. diff infection following antibiotic treatment for UTI. The sequelae of various medical situations and treatments increased her fatigue and weakness, resulting in depression, loss of appetite and weight. Earlier in September a UA was positive for UTI and she was treated with 3 days of Bactrim. Since then her mood and energy have somewhat improved, but not to levels previous to the hip fracture. Her weight remains stable around 140 pounds. RELEASE COORDINATOR evaluation on 09/25/2016 revealed cognitive dysphagia which is characterized by oral defensiveness, refusal of food, or holding food in mouth without swallowing , while the ability to drink remains grossly intact, as does a preference for sweets. The therapist said she will probably need to get most of her nutrition in a form she can drink, such as nutritional smoothies and pureeing foods into a drinkable consistency, like a cream soup. She left instructions with nursing staff. Yesterday nursing staff reported low O2 sats, and in testing this myself in todays visit, found her pulse oximetry reading was 90% when her hands were cold. However, after her hands were warmed up by holding them, it increased to 99%. Nursing had also reported she was not sitting up and being out in the common room as much as normal. The patient reports increased fatigue. She is sitting in the common room in her wheelchair. She reports eating about the same as always, and, in fact, her weight has been stabilized around 140 lbs for over a month. Social History - Living Situation Living arrangement: Assisted living ([facility]) Support System: Brother, DPOA, lives nearby Medications/Allergies - Medications Home Medications: Ambulatory Orders Medication Instructions Recorded Confirmed Clopidogrel [Plavix] 75 mg PO DAILY 04/12/15 07/17/16 Levothyroxine [Synthroid] 50 mcg PO DAILY 04/12/15 07/17/16 metFORMIN [Glucophage] 1,000 mg PO QDDINNER 10/15/15 07/17/16 Doxepin [SINEquan] 25 mg PO QPM 07/17/16 07/17/16 Famotidine [Pepcid] 20 mg PO DAILY 07/17/16 07/17/16 metFORMIN [Glucophage] 500 mg PO QDBREAKFAST 07/17/16 07/17/16 Hydrocodone/Acetaminophen [[place] 0.5 - 1 each PO Q4H PRN 07/21/16 07/21/16 5-325 Tablet] Metoprolol Succinate [Toprol Xl] 25 mg PO DAILY 07/21/16 07/21/16 Mirtazapine 15 mg PO QPM 10/09/16 10/09/16 - Allergies Allergies/Adverse Reactions: Allergies Allergy/AdvReac Type Severity Reaction Status Date / Time Calcium Channel Blocking Allergy Unknown Verified 10/15/15 15:18 Agent Dilt diclofenac sodium * Allergy Unknown Verified 10/15/15 15:18 [From Voltaren] diltiazem Allergy Unknown Verified 10/15/15 15:18 Iodinated Contrast- Oral and Allergy Unknown Verified 10/15/15 15:18 IV Dye [Iodinated Contrast Media - IV Dye] iodine Allergy Unknown Verified 10/15/15 15:18 metoclopramide Allergy Unknown Verified 10/15/15 15:18 Review of Systems - Constitutional Constitutional: reports: Fatigue. denies: Fever, Chills, Malaise - Cardiovascular Cariovascular: denies: Chest pain - Respiratory Respiratory: denies: Cough, SOB at rest, SOB with exertion Physical Examination - Vital Signs Temperature: 97.2 C Pulse Rate: 80 O2 Saturation: 99 Blood Pressure: 110/60 - Physical Exam General Appearance: positive: No acute distress Eyes Bilateral: positive: EOMI, No lid inflammation, Conjunctivae nml, No scleral icterus ENT: positive: No signs of dehydration Neck: positive: Trachea midline Respiratory: positive: No respiratory distress, Breath sounds nml Cardiovascular: positive: Regular rate & rhythm Neurologic/Psychiatric: positive: Other (Lesion on dorsal surface R foot has healed well. Discontinue wound care.) Palliative Care - POLST Patient has POLST: Yes POLST Status: DNR, Comfort Measures Pain: No pain Drowsiness: None Nausea: None Anxiety: None Dyspnea: None Anorexia: Mild (1-3) Constipation: No Feelings of wellbeing/Perceived Quality of Life: No change, Comment (increased fatigue) Performance Status: Previous level of function prior to this episode: Mostly in wheelchair or bed, eats little, able to feed self, drinks Ensure. She has had a general slow, decline over the period that Palliative Care has been working with her, and her new baseline is lower than previous to the hip fracture. Current level of functioning: About the same level in the past month Palliative Care Performance Status: 50% - Palliative Care Discussion: Who is present: Besides myself and the patient, NATY Fenton. Surrogate decision maker: Boaz Johnson, brother, is DPOA Patient/Family understanding of the illness: Spoke with brother about our plan to run some tests and he is in agreement. He understands that over time, she will continue to decline and he wants to keep her comfortable. The patients understanding of her health is limited by dementia Most important goals: Comfort and avoiding hospitalization. Can use antibiotics as needed, with comfort as goal. Patient/family concerns: Brother is grateful for the care his sister is receiving, and has no concerns or questions today. He mainly defers to our recommendations regarding medical care. Impression and Recommendations - Palliative Care Impression: This is an 85-year-old pleasantly demented woman who has had a slow but steady decline in functioning and cognitive ability, which accelerated after her recent hip fracture. Her decline and weight loss has stabilized, and she does not currently fit criteria for Hospice. Recommendations/Counseling Done: 1. Anorexia: Weight has stabilized and she consistently drinks Ensure, so Continue Ensure and other food that can be served in drinkable form, like health smoothies, pureed soups. Continue mirtazapine for appetite stimulant. Can consider Boost. 2. Fatigue: Decrease metformin evening dosage to 500mg, run labs: BMP, CBC, A1c , thyroid (she has a standing order for BMP and A1c every three months; so it is due soon). 3. Depression: On mirtazapine 15mg nightly. Consider decreasing to 7.5mg to alleviate fatigue, wait for lab results first. 4. Pain: No complaint. Discontinue acetaminophen. 5. Hypoxia: None today. Instructed nursing to be sure her hands are warmed before using pulse oximetry. Time Spent: 30 minutes, with greater than 50% of this done in counseling and coordination of care, weighing benefits and burdens of different treatment and intervention options.
== END 2016-10-09 13:31 | disposition home or self-care (01) ==
LOC: PC 13:30
PROVIDERS: ATTEND Nurse Practitioner
DX: Z51.5 Encounter for palliative care (principal); R63.0 Anorexia; R53.83 Other fatigue; F32.9 Major depressive disorder, single episode, unspecified; F01.50 Vascular dementia, unspecified severity, without behavioral disturbance, psychotic disturbance, mood disturbance, and anxiety; I25.10 Atherosclerotic heart disease of native coronary artery without angina pectoris; Z87.898 Personal history of other specified conditions; Z86.73 Personal history of transient ischemic attack (TIA), and cerebral infarction without residual deficits; Z87.81 Personal history of (healed) traumatic fracture; Z87.440 Personal history of urinary (tract) infections; Z86.19 Personal history of other infectious and parasitic diseases; Z66 Do not resuscitate; Z79.84 Long term (current) use of oral hypoglycemic drugs

== ENCOUNTER 2016-10-28 15:10 | Outpatient (CLI) | payer MEDICARE, BC ==
--- NOTE | 2016-10-28 20:42 | PROVIDER PROGRESS NOTE ---
Palliative Care Follow Up - Referral Referring Provider: ROEL Ball Time of Visit: 15:10 Referral setting: Assisted living (Patient is seen in her home setting, which is the dementia unit at [facility] assisted living facility. It is a taxing and considerable effort for her to leave the facility due to dementia and being wheelchair bound, and it is necessary to review facilitys records.) - Information Sources History obtained from: Patient, Other (nursing staff) Exam limitations: Clinical condition (dementia) - History of Present Illness Update Brief HPI Update: This is a pleasant 85-year old woman with vascular dementia, etiology most likely severe alcohol abuse, coronary artery disease, and history of small frequent strokes. In July 2016 she fell and fractured her R hip trochanter s/p ORIF and during subsequent rehabilitation was infected with C. difficile following antibiotic treatment for UTI. This caused fatigue and weakness, resulting in depression, loss of appetite and weight. She has slowly been regaining function, and has stabilized somewhat though with continued fatigue and low appetite. She was evaluated with cognitive dysphagia and per the speech pathologist will probably need to get most of her nutrition in a form she can drink. Her weight has been stable around 140 lbs since August 2016. Patient says she is doing well and reports feeling some contentment. She gets occasional SOB, and had a cough today. Nursing reported constipation with small, hard stools requiring digital disimpaction several times. Lesions on top of her R foot have resolved and silver sulfadiazine topical treatment can stop. Her labs (done every 3 months) came back mostly within normal limits, and so I will decrease metformin and mirtazapine with the intent of alleviating fatigue. Pharmacy recommended decreasing doxepin due to anticholinergic effect, but past trial dose reduction failed and she suffered from increased and severe pruritis , so dosage was increased back to 25mg. Even so she still occasionally scratches at herself. History information obtained from patient, nursing staff, and EMR chart notes from previous Palliative Care visits. Social History - Living Situation Living arrangement: Assisted living Living Situation: With caregiver(s) Support System: Brother lives locally. Medications/Allergies - Medications Home Medications: Ambulatory Orders Medication Instructions Recorded Confirmed Clopidogrel [Plavix] 75 mg PO DAILY 04/12/15 07/17/16 Levothyroxine [Synthroid] 50 mcg PO DAILY 04/12/15 07/17/16 Doxepin [SINEquan] 25 mg PO QPM 07/17/16 07/17/16 Famotidine [Pepcid] 20 mg PO DAILY 07/17/16 07/17/16 metFORMIN [Glucophage] 500 mg PO BID 07/17/16 10/29/16 Hydrocodone/Acetaminophen [[place] 0.5 - 1 each PO Q4H PRN 07/21/16 07/21/16 5-325 Tablet] Metoprolol Succinate [Toprol Xl] 25 mg PO DAILY 07/21/16 07/21/16 Mirtazapine 15 mg PO QPM 10/09/16 10/09/16 - Allergies Allergies/Adverse Reactions: Allergies Allergy/AdvReac Type Severity Reaction Status Date / Time Calcium Channel Blocking Allergy Unknown Verified 10/15/15 15:18 Agent Dilt diclofenac sodium * Allergy Unknown Verified 10/15/15 15:18 [From Voltaren] diltiazem Allergy Unknown Verified 10/15/15 15:18 Iodinated Contrast- Oral and Allergy Unknown Verified 10/15/15 15:18 IV Dye [Iodinated Contrast Media - IV Dye] iodine Allergy Unknown Verified 10/15/15 15:18 metoclopramide Allergy Unknown Verified 10/15/15 15:18 Review of Systems - Constitutional Constitutional: reports: Fatigue, Poor appetite - Cardiovascular Cariovascular: reports: Exertional dyspnea (only occasionally) - Respiratory Respiratory: reports: Cough (today) - Integumentary Integumentary: reports: Pruritis - Psychiatric Psychiatric: reports: Other (not sad; feels some contentment) Physical Examination - Vital Signs Temperature: 98.4 C Pulse Rate: 79 O2 Saturation: 94 Blood Pressure: 118/66 - Physical Exam General Appearance: positive: No acute distress, Alert Eyes Bilateral: positive: No lid inflammation, Conjunctivae nml, No scleral icterus Neck: positive: Trachea midline Respiratory: positive: No respiratory distress, Breath sounds nml Cardiovascular: positive: Regular rate & rhythm, No murmur Skin: positive: Other (resolving small scabs on forearms from self scratching.) Extremities: positive: Other (lesions on top of R foot nearly resolved) Neurologic/Psychiatric: positive: Mood/affect nml, Disoriented to time Palliative Care - POLST Patient has POLST: Yes POLST Status: DNR, Comfort Measures Pain: No pain Drowsiness: None Nausea: None Anxiety: Mild (1-3) Dyspnea: None Anorexia: Moderate (4-6) Insomnia: Sleeps well Constipation: Yes Feelings of wellbeing/Perceived Quality of Life: Improved Performance Status: Current level of functioning: Mostly in wheelchair or bed, eats little, able to feed self, drinks Ensure. New baseline is lower than previous to the hip fracture, but stable. Weight is steady, around 140 lbs since August Palliative Care Performance Status: 50% - Palliative Care Discussion: Who is present: Patient and myself. Surrogate decision maker: Boaz Johnson, brother, DPOA. Called him following the visit Patient/Family understanding of the illness: Spoke with brother lab results. He reports she was doing well during his visit. Most important goals: Comfort care, avoid hospitalization. Use antibiotics as needed, with comfort as goal. Patient/family concerns: Brother is grateful for the care his sister is receiving, and has no concerns or questions. He mainly defers to our recommendations regarding medical care. Results - Lab Results Lab results reviewed: Yes Lab and Imaging Results: WBC 7.1 Hgb 13.4 Hct 39.6 Plt 253 Na 139 Cl 96 K 4.8 HCO3 26 BUN 12 Cr 0.63 HgbA1c 6.5 TSH 1.98 T4 7.0 Impression and Recommendations - Palliative Care Impression: This is an 85-year-old pleasantly demented woman. Her previous decline and weight loss has stabilized, and she does not currently fit criteria for Hospice. Recent lab results were within normal limits. Recommendations/Counseling Done: 1. Anorexia: Weight continues to be stable, she eats usually 25-50%, continues drinking Ensure. Continue to offer nutrition in drinkable form. Decrease mirtazapine from 15 mg to 7.5 mg daily; goal is to alleviate fatigue 2. Diabetes: HgbA1c at 6.5, very good for this age range; avoid overly-strict control to avoid hypoglycemia. Decrease metformin dosage to 500mg daily, to alleviate fatigue. 3. Depression: Decrease mirtazapine to 7.5mg to alleviate fatigue. 4. Chronic pruritis: Maintain current dosage of doxepin 25mg at bedtime. She has failed GDR of doxepin in the recent past and pruritis is a significant quality of life issue for her. Add loratidine 10mg by mouth daily and monitor for reactions. 5. Constipation: Recently had small, hard stools requiring digital disimpaction. Miralax 17gms in 4 oz fluid daily, hold for loose stools, this order started 10/28/16. 6. Lesions on top of R foot: Resolved; d/c silver sulfadiazine. Time Spent: 30 minutes, with greater than 50% of this done in counseling and coordination of care, weighing benefits and burdens of different treatment and intervention options.
== END 2016-10-28 15:11 | disposition home or self-care (01) ==
LOC: PC 15:10
PROVIDERS: ATTEND Nurse Practitioner
DX: Z51.5 Encounter for palliative care (principal); R63.0 Anorexia; E11.9 Type 2 diabetes mellitus without complications; F32.9 Major depressive disorder, single episode, unspecified; L29.9 Pruritus, unspecified; F01.50 Vascular dementia, unspecified severity, without behavioral disturbance, psychotic disturbance, mood disturbance, and anxiety; K59.00 Constipation, unspecified; L98.9 Disorder of the skin and subcutaneous tissue, unspecified; Z87.898 Personal history of other specified conditions; I25.10 Atherosclerotic heart disease of native coronary artery without angina pectoris; Z86.73 Personal history of transient ischemic attack (TIA), and cerebral infarction without residual deficits; Z87.440 Personal history of urinary (tract) infections; Z86.19 Personal history of other infectious and parasitic diseases; Z87.81 Personal history of (healed) traumatic fracture; Z79.84 Long term (current) use of oral hypoglycemic drugs; Z79.899 Other long term (current) drug therapy; Z66 Do not resuscitate

== ENCOUNTER 2016-11-17 14:50 | Outpatient (CLI) | payer MEDICARE, BC ==
--- NOTE | 2016-11-17 17:38 | PROVIDER PROGRESS NOTE ---
Palliative Care Follow Up - Referral Referring Provider: ROEL Ball Time of Visit: 14:50 Referral setting: Assisted living (Patient is seen in her home setting, which is the dementia unit at an assisted living facility. It is a taxing and considerable effort for her to leave the facility due to dementia and being wheelchair bound, and it is necessary to review facilitys records.) - Information Sources History obtained from: Patient, Caregiver Exam limitations: Clinical condition (Dementia) - History of Present Illness Update Brief HPI Update: This is a pleasant 85-year old woman with vascular dementia, etiology most likely severe alcohol abuse, coronary artery disease, and history of small frequent strokes. In July 2016 she fell and fractured her R hip trochanter s/p ORIF and during subsequent rehabilitation C. diff infection after antibiotic treatment for UTI, resulting in depression, fatigue and weight loss. She also has a history of episodic pruritus of unknown etiology. She has stabilized since her hip fracture but has not returned to her previous baseline. Patient has 3 bullae (without fluid filling) on dorsal surface of R foot. They have been recurring and may be related to vascular deficiency, possibly a combination of venous and arterial. Patients hands and lower extremities are cold to the touch, and pedal pulses are not palpable. She does not currently wear compression hose or elevate legs during the day. She reports some SOB and coughing. Patient also reports having a cold, with a runny nose. Her loratadine had been D/Cd 11/09/16. About 2 weeks ago due to complaints of fatigue I decreased her mirtazapine ( used as an appetite stimulant) to 7.5mg, but her pruritus increased so it was increased back to 15mg, since mirtazapine can alleviate pruritus. Triamcinolone cream was also started for 10 days. The pruritus has improved and I did not observe fresh lesions on either arms or back today, where she usually tends to scratch herself. But she does report fatigue since increasing the mirtazapine. She weighs 147.4, which is up 7 lbs from 09/29/16 when it was 140 lbs. History information obtained from patient, nursing staff, and EMR chart notes from previous Palliative Care visits. Medications/Allergies - Medications Home Medications: Ambulatory Orders Medication Instructions Recorded Confirmed Clopidogrel [Plavix] 75 mg PO DAILY 04/12/15 11/18/16 Levothyroxine [Synthroid] 50 mcg PO DAILY 04/12/15 11/18/16 Doxepin [SINEquan] 25 mg PO QPM 07/17/16 11/18/16 Famotidine [Pepcid] 20 mg PO DAILY 07/17/16 11/18/16 metFORMIN [Glucophage] 500 mg PO DAILY 07/17/16 11/18/16 Hydrocodone/Acetaminophen [[place] 0.5 tab PO Q4H PRN 07/21/16 11/18/16 5-325 Tablet] Mirtazapine 15 mg PO QPM 10/09/16 11/18/16 Eucerin Cream 454gm 1 ea TOP PRN PRN 11/18/16 Lactose-Reduced Food [Ensure 1 bottle PO TID 11/18/16 11/18/16 Compact] Loperamide [Imodium] 2 mg PO PRN PRN MDD 16 mg daily 11/18/16 11/18/16 Metoprolol Tartrate [Lopressor] 12.5 mg PO BID 11/18/16 11/18/16 Nitroglycerin [Nitrostat] 0.4 mg SL Q5MIN PRN 11/18/16 11/18/16 Polyethylene Glycol 3350 [Miralax] 17 gm PO DAILY 11/18/16 11/18/16 Triamcinolone 0.5% Cream [Kenalog 1 each TOP BID MDD for 10 days 11/18/16 0.5% Cream] - Allergies Allergies/Adverse Reactions: Allergies Allergy/AdvReac Type Severity Reaction Status Date / Time Calcium Channel Blocking Allergy Unknown Verified 10/15/15 15:18 Agent Dilt diclofenac sodium * Allergy Unknown Verified 10/15/15 15:18 [From Voltaren] diltiazem Allergy Unknown Verified 10/15/15 15:18 Iodinated Contrast- Oral and Allergy Unknown Verified 10/15/15 15:18 IV Dye [Iodinated Contrast Media - IV Dye] iodine Allergy Unknown Verified 10/15/15 15:18 metoclopramide Allergy Unknown Verified 10/15/15 15:18 Review of Systems - Constitutional Constitutional: reports: Fatigue - Respiratory Respiratory: reports: Cough (occasional), SOB at rest (occasional) - Gastrointestinal Gastrointestinal: denies: Constipation, Diarrhea - Genitourinary Genitourinary: denies: Dysuria - Integumentary Integumentary: reports: Pruritis (improved) - Neurological Neurological: reports: Memory problems - Psychiatric Psychiatric: denies: Depression, Anxiety Physical Examination - Vital Signs Temperature: 97.2 C Pulse Rate: 62 O2 Saturation: 95 Blood Pressure: 128/70 - Physical Exam General Appearance: positive: No acute distress, Alert Eyes Bilateral: positive: EOMI, No lid inflammation, Conjunctivae nml, No scleral icterus ENT: positive: No signs of dehydration Neck: positive: No JVD, Trachea midline Respiratory: positive: Chest non-tender, No respiratory distress, Other ( diminshed breath sounds, possible crackles in lower lobes) Cardiovascular: positive: Regular rate & rhythm Extremities: positive: Pedal edema (mild), Other (skin of bilateral lower extremities have reddish discoloration and are cold to the touch, with no pedal pulse palpable. Hands and forearms are also cold.) Neurologic/Psychiatric: positive: Motor nml, Mood/affect nml, Other Palliative Care - POLST Patient has POLST: Yes Performance Status: Current level of functioning: Wheelchair or bed, transfers to toilet, able to feed self. Stable functionally. Some weight gain, around 147 lbs, some increase in eating noted by staff. Palliative Care Performance Status: 50% - Palliative Care Discussion: Who is present: Patient and myself. Surrogate decision maker: Boaz Johnson, brother, DPOA. Left a voicemail for him after the visit. Most important goals: Comfort, quality of life, and avoiding hospitalization. 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 She also is plagued with ongoing pruritus, and we are titrating various topical and oral treatments for maximum relief. Recommendations/Counseling Done: 1. Peripheral vascular disease: Start elevation of lower extremities 10-15 minutes every 2 hours. Will trial lightweight Tubigrip compression stockings, size E, to see if its tolerated by patient. Continue silver sulfadine on bullae lesions and cover with gauze until resolved. 2. Anorexia: Improving, about 7 lb weight gain since September, now 147 lbs. Continue Ensure at every meal. Increased mirtazapine back to 15 mg, due to increase in pruritus, which mirtazapine can alleviate. 3. Pruritus: Increase mirtazapine per above; start triamcinolone 0.5% cream x 10 days to arms and back. Family to bring in cetaphil, and discontinue use of facility soap. Stopped loratadine since it was not working. Continue doxepin. 4. Fatigue: Did a trial dosage decrease of mirtazapine but pruritus increased. Doxepin also increases her fatigue, but improves the itching, so will continue both in the interest of quality of life. 5. SOB: O2 sats 95%, some diminished breath sounds. Monitor for change in cognition, possible respiratory tract infection. Discuss with brother about ordering cxr, benefits and burdens of treatment. POLST stipulates antibiotics with comfort as goal. Last time she had antibiotic treatment, she contracted C diff and rapidly declined afterward. Time Spent: 30 minutes, with greater than 50% of this done in counseling and coordination of care, weighing benefits and burdens of different treatment and intervention options.
== END 2016-11-17 14:51 | disposition home or self-care (01) ==
LOC: PC 14:50
PROVIDERS: ATTEND Nurse Practitioner
DX: Z51.5 Encounter for palliative care (principal); I73.9 Peripheral vascular disease, unspecified; R23.8 Other skin changes; R63.0 Anorexia; L29.9 Pruritus, unspecified; R53.83 Other fatigue; R06.02 Shortness of breath; F01.50 Vascular dementia, unspecified severity, without behavioral disturbance, psychotic disturbance, mood disturbance, and anxiety; I25.10 Atherosclerotic heart disease of native coronary artery without angina pectoris; Z86.73 Personal history of transient ischemic attack (TIA), and cerebral infarction without residual deficits; Z99.3 Dependence on wheelchair; Z87.898 Personal history of other specified conditions; Z87.81 Personal history of (healed) traumatic fracture; Z87.440 Personal history of urinary (tract) infections; Z86.19 Personal history of other infectious and parasitic diseases

== ENCOUNTER 2016-12-10 13:30 | Outpatient (CLI) | payer MEDICARE, BC ==
--- NOTE | 2016-12-10 17:29 | CONSULTATION NOTE ---
Palliative Care Follow Up - Referral Referring Provider: ROEL Ball Time of Visit: 13:30 Referral setting: Assisted living (Patient is seen in her home setting, which is the dementia unit at [facility] assisted living facility. It is a taxing and considerable effort for her to leave the facility due to dementia and being wheelchair bound, and it is necessary to review facilitys records.) Referral Reason: Recurring, unresolving right foot wound - Information Sources Records reviewed: RN notes reviewed, Previous records reviewed History/Review of Systems obtained from: Patient, Nursing Exam limitations: Clinical condition (Dementia) - History of Present Illness Update Brief HPI Update: This is a pleasant 85-year old woman with vascular dementia, etiology most likely severe alcohol abuse, coronary artery disease, and history of small frequent strokes. In July 2016 she fell and fractured her R hip trochanter s/p ORIF and during subsequent rehabilitation had a C. diff infection after antibiotic treatment for UTI, resulting in depression, fatigue and weight loss. She also has a history of episodic pruritus of unknown etiology. She has stabilized since her hip fracture but at a lower baseline. FACE to FACE for wound care: She has a recurrent and non-resolving wound on the dorsal surface of right foot , in the form of several 3 bullae that form, burst, and reform. Likely etiology is vascular deficiency, a combination of venous and arterial. Because of the recurrent and non-resolving nature of this wound, the patient will benefit from wound care oversight and management with the goal of managing the wound so it does not worsen or become infected, without necessarily resolving the wound. The patient has chronic fatigue, and also admits she may be depressed. Mirtazapine likely makes her sleepy, but it is kept at the current dosage of 15mg because of her issues with pruritus, and mirtazapine can alleviate itching. Her appetite has stabilized, along with her weight, which is running between 144 -148 lbs. History obtained from patient, nursing staff, family (brother) and EMR chart notes from previous Palliative Care visits. Social History - Living Situation Living arrangement: Assisted living Living Situation: With caregiver(s) (Brother, Boaz, lives locally.) Medications/Allergies - Medications Home Medications: Ambulatory Orders Medication Instructions Recorded Confirmed Clopidogrel [Plavix] 75 mg PO DAILY 04/12/15 11/18/16 Levothyroxine [Synthroid] 50 mcg PO DAILY 04/12/15 11/18/16 Doxepin [SINEquan] 25 mg PO QPM 07/17/16 11/18/16 Famotidine [Pepcid] 20 mg PO DAILY 07/17/16 11/18/16 metFORMIN [Glucophage] 500 mg PO DAILY 07/17/16 11/18/16 Hydrocodone/Acetaminophen [[place] 0.5 tab PO Q4H PRN 07/21/16 11/18/16 5-325 Tablet] Mirtazapine 15 mg PO QPM 10/09/16 11/18/16 Eucerin Cream 454gm 1 ea TOP PRN PRN 11/18/16 Lactose-Reduced Food [Ensure 1 bottle PO TID 11/18/16 11/18/16 Compact] Loperamide [Imodium] 2 mg PO PRN PRN MDD 16 mg daily 11/18/16 11/18/16 Metoprolol Tartrate [Lopressor] 12.5 mg PO BID 11/18/16 11/18/16 Nitroglycerin [Nitrostat] 0.4 mg SL Q5MIN PRN 11/18/16 11/18/16 Polyethylene Glycol 3350 [Miralax] 17 gm PO DAILY 11/18/16 11/18/16 Triamcinolone 0.5% Cream [Kenalog 1 each TOP BID MDD for 10 days 11/18/16 0.5% Cream] - Allergies Allergies/Adverse Reactions: Allergies Allergy/AdvReac Type Severity Reaction Status Date / Time Calcium Channel Blocking Allergy Unknown Verified 10/15/15 15:18 Agent Dilt diclofenac sodium * Allergy Unknown Verified 10/15/15 15:18 [From [facility]] diltiazem Allergy Unknown Verified 10/15/15 15:18 Iodinated Contrast- Oral and Allergy Unknown Verified 10/15/15 15:18 IV Dye [Iodinated Contrast Media - IV Dye] iodine Allergy Unknown Verified 10/15/15 15:18 metoclopramide Allergy Unknown Verified 10/15/15 15:18 Review of Systems - Constitutional Constitutional: reports: Fatigue - Ears, Nose & Throat Ears, Nose & Throat: reports: Hearing loss - Cardiovascular Cardiovascular: denies: Palpitations, Chest pain, Edema - Respiratory Respiratory: reports: Cough (sporadic), SOB at rest (sporadic) - Gastrointestinal Gastrointestinal: denies: Constipation, Diarrhea - Neurological Neurological: reports: General weakness, Memory problems - Psychiatric Psychiatric: reports: Depression (Notices that others seem to be content here, but she is not) Physical Exam - Vital Signs Temperature: 97.3 F Pulse Rate: 85 O2 Saturation: 99 Blood Pressure: 110/77 - Physical Exam General Appearance: positive: No acute distress, Lethargic Eyes Bilateral: positive: EOMI, No lid inflammation, Conjunctivae nml, No scleral icterus ENT: positive: No signs of dehydration Neck: positive: Trachea midline, Stiff neck Cardiovascular: positive: Regular rate & rhythm, No murmur Respiratory: positive: Diminished throughout Extremities: positive: Pedal edema Neurologic/Psychiatric: positive: Sensation nml, Flat affect Palliative Care - POLST Patient has POLST: Yes POLST Status: DNR, Comfort Measures Pain: Pain unchanged Tiredness/Fatigue: Moderate (4-6) Drowsiness/Sedation: Mild (1-3) Nausea: None Depression: Mild (1-3) Anxiety: None Dyspnea: None Anorexia: Mild (1-3) Constipation: No Performance Status: Current level of functioning: Wheelchair, able to transfer to toilet, able to feed self, requires help with ADLs. Stable at new (lower) baseline since hip fracture in July 2016. Palliative Care Performance Status: 50% - Palliative Care Discussion: Who is present: Patient and myself. Surrogate decision maker: Boaz Johnson, brother, DPOA, spoke with him after the visit. Most important goals: Comfort care, quality of life, and avoiding hospitalization. Manage recurring foot wound with goal of avoiding infection and worsening condition. Impression and Recommendations - Palliative Care Impression: This is an 85-year-old pleasantly demented woman, with chronic depression and a recurrent wound on R foot, likely vascular in origin. She would benefit from Home Health wound care management to prevent the wound from infecting. Recommendations/Counseling Done: 1. Peripheral vascular disease: Continue elevations throughout day and tubigrip for compression. 2. 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 Until they start, continue applying silver sulfadine and covering with gauze. 3. Anorexia: Stabilized. Weight remaining around 144-148 lbs. Continue Ensure at every meal and mirtazapine 15 mg. 4. Pruritus: No current complaints. Continue mirtazapine 15mg, cetaphil, doxepin, and dont use the facilitys harsh soap. Time Spent: 25 minutes, with greater than 50% of this done in evaluation of wound and counseling and coordination of care, weighing benefits and burdens of different interventions.
== END 2016-12-10 13:31 | disposition home or self-care (01) ==
LOC: PC 13:30
PROVIDERS: ATTEND Nurse Practitioner
DX: Z51.5 Encounter for palliative care (principal); I73.9 Peripheral vascular disease, unspecified; S91.301A Unspecified open wound, right foot, initial encounter; R63.0 Anorexia; L29.9 Pruritus, unspecified; Z99.3 Dependence on wheelchair; I25.10 Atherosclerotic heart disease of native coronary artery without angina pectoris; R53.82 Chronic fatigue, unspecified; Z79.891 Long term (current) use of opiate analgesic; R05 Cough; R06.09 Other forms of dyspnea; M62.81 Muscle weakness (generalized); R60.9 Edema, unspecified; Z66 Do not resuscitate

== ENCOUNTER 2016-12-24 13:15 | Outpatient (CLI) | payer MEDICARE, BC | END 2016-12-24 13:16 | disposition home or self-care (01) | LOC: LAB.R 13:15 | PROVIDERS: ATTEND Family Medicine | DX: S91.301D Unspecified open wound, right foot, subsequent encounter (principal) | CPT/HCPCS: 87070; 87205 ==

== ENCOUNTER 2017-01-15 13:15 | Outpatient (CLI) | payer MEDICARE, BC ==
--- NOTE | 2017-01-15 19:08 | CONSULTATION NOTE ---
Palliative Care Follow Up - Referral Referring Provider: Jasmin Ball PA-C Time of Visit: 13:15 Referral setting: Assisted living (Seen in home setting, which is [facility] dementia unit, due to taxing and considerable effort required to leave the home secondary to advanced dementia and being wheelchair-bound. I also need to access the facility's records.) - Information Sources Records reviewed: RN notes reviewed, Previous records reviewed History/Review of Systems obtained from: Patient, Nursing Exam limitations: Clinical condition (dementia, poor historian) - History of Present Illness Update Brief HPI Update: This is a pleasant 85-year-old woman with vascular dementia, etiology most likely severe alcohol abuse, coronary artery disease, and history of small frequent strokes. In July 2016 she fell and fractured her right hip trochanter SP ORIF and during subsequent rehabilitation had a C. differential infection after antibiotic treatment for UTI, resulting in depression, fatigue, and weight loss. She also has a history of episodic pruritus of unknown etiology. She has since stabilized since his hip fracture and C. difficile infection but at the lower baseline than previously. Today she presents with the new onset cough since yesterday. She complains of runny nose, itchy eyes, fatigue, chills, and weakness. She denies headache, muscle aches, chest pain, chest tenderness, sore throats. She is afebrile. She is continuing to receive wound care from home health for chronic lesions on her dorsal right foot related to persistent rubbing while she sleeps at night. 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 Staff have been using thick blanket/towel wrapping to R foot especially at HS to prevent friction/rubbing. manager staffing report that patient removes wrapping herself. Her appetite and weight have improved; she weighs a 149.1 pounds on 01/12/2017. Social History - Living Situation Living Situation: With caregiver(s) Support System: BrotherBoaz, lives locally. Medications/Allergies - Medications Home Medications: Ambulatory Orders Medication Instructions Recorded Confirmed Clopidogrel [Plavix] 75 mg PO DAILY 04/12/15 11/18/16 Levothyroxine [Synthroid] 50 mcg PO DAILY 04/12/15 01/15/17 Doxepin [SINEquan] 25 mg PO QPM 07/17/16 11/18/16 Famotidine [Pepcid] 20 mg PO DAILY 07/17/16 01/15/17 metFORMIN [Glucophage] 500 mg PO DAILY 07/17/16 01/15/17 Hydrocodone/Acetaminophen [[place] 0.5 tab PO Q4H PRN 07/21/16 01/15/17 5-325 Tablet] Mirtazapine 15 mg PO QPM 10/09/16 01/15/17 Eucerin Cream 454gm 1 ea TOP PRN PRN 11/18/16 01/15/17 Lactose-Reduced Food [Ensure 1 bottle PO TID 11/18/16 01/15/17 Compact] Loperamide [Imodium] 2 mg PO PRN PRN MDD 16 mg daily 11/18/16 01/15/17 Metoprolol Tartrate [Lopressor] 12.5 mg PO BID 11/18/16 01/15/17 Nitroglycerin [Nitrostat] 0.4 mg SL Q5MIN PRN 11/18/16 01/15/17 Polyethylene Glycol 3350 [Miralax] 17 gm PO DAILY 11/18/16 01/15/17 Triamcinolone 0.5% Cream [Kenalog 1 each TOP BID MDD for 10 days 11/18/16 0.5% Cream] Benzonatate 100 mg PO TID PRN 01/15/17 01/15/17 Guaifenesin [Tussin] 10 ml PO Q6H PRN 01/15/17 01/15/17 - Allergies Allergies/Adverse Reactions: Allergies Allergy/AdvReac Type Severity Reaction Status Date / Time Calcium Channel Blocking Allergy Unknown Verified 10/15/15 15:18 Agent Dilt diclofenac sodium * Allergy Unknown Verified 10/15/15 15:18 [From Voltaren] diltiazem Allergy Unknown Verified 10/15/15 15:18 Iodinated Contrast- Oral and Allergy Unknown Verified 10/15/15 15:18 IV Dye [Iodinated Contrast Media - IV Dye] iodine Allergy Unknown Verified 10/15/15 15:18 metoclopramide Allergy Unknown Verified 10/15/15 15:18 Review of Systems - Constitutional Constitutional: reports: Fatigue, Chills, Weakness, Weight stable (01/12/17 149.1 lbs. 01/05/17 148 lbs. 12/29/16 150.8 lbs 12/15/16 148 lbs. 144.6 lbs. 11/10/16 145.4 lbs. 10/20/16 144 lbs.). denies: Fever, Malaise - Eyes Eyes: reports: Irritation - Ears, Nose & Throat Ears, Nose & Throat: reports: Hearing loss - Cardiovascular Cardiovascular: denies: Irregular heart rate, Chest pain, Edema - Respiratory Respiratory: reports: Cough, Sputum production. denies: Pleuritic pain - Gastrointestinal Gastrointestinal: denies: Constipation, Diarrhea, Nausea, Vomiting - Neurological Neurological: reports: General weakness, Memory problems. denies: Headache Physical Exam - Vital Signs Temperature: 97.4 F Pulse Rate: 70 O2 Saturation: 95 Blood Pressure: 108/60 - Physical Exam General Appearance: positive: No acute distress, Lethargic Eyes Bilateral: positive: EOMI, No lid inflammation, Conjunctivae nml, No scleral icterus ENT: positive: ENT inspection nml, No signs of dehydration Neck: positive: Nml inspection, Thyroid nml, No JVD, Trachea midline. negative : Lymphadenopathy (R), Lymphadenopathy (L) Cardiovascular: positive: Regular rate & rhythm, No murmur, No gallop Respiratory: positive: Chest non-tender, No respiratory distress, Diminished throughout (Very difficult to hear respirations, she did not deep breath despite repeated requests) Skin: positive: No symptoms Extremities: positive: No pedal edema Neurologic/Psychiatric: positive: Disoriented to place, Disoriented to time, Flat affect Palliative Care - POLST Patient has POLST: Yes POLST Status: DNR, Comfort Measures Pain: No pain Tiredness/Fatigue: Moderate (4-6) Drowsiness/Sedation: None Nausea: None Depression: Mild (1-3) Anxiety: None Dyspnea: None Anorexia: None Feelings of wellbeing/Perceived Quality of Life: No change Performance Status: Current level of functioning: Wheelchair, able to transfer to toilet, able to feed self, requires help with ADLs. Stable at lower baseline. Persistnely rubs feet together at night causing chronic bullae lesions. Pulls off protective wrap that staff applies at night. Palliative Care Performance Status: 50% - Palliative Care Discussion: Who is present: Patient and myself. Surrogate decision maker: Boaz Johnson, brother/DPOA, telephone conversation with him post-visit. Most important goals: Comfort care. Monitor for increased respiratory symptoms, avoid hospitalization. Has h/o pneumonia. Continue wound care management with goal to protect foot from self-inflicted damage due to obsessive and persistent rubbing. Impression and Recommendations - Palliative Care Impression: This is a pleasantly demented 86-year-old woman with chronic depression and recurrent wound on R foot due to persisent and obsessive rubbing of her feet, particularly at night. Home Health nursing is managing the wound care, but facility staff need to regularly check the patient and maintain the protective wrapping on her foot, particularly during the night. She has a new onset cough, likely is a viral infection/bad cold. Monitor closely for increase/persistence of symptoms; she has a h/o pneumonia. Recommendations/Counseling Done: 1. Cough: Start guaifenesin 100mg/5ml. 10 ml PO q6h prn and benzonatate 100 mg casule PO TID PRN. Monitor closely for symptom change, she has h/o pneumonia. 2. Allergic conjunctivitis: Start patanol (olopatadine ophthalmic) solution. 1 drop in both eyes BID x 7 days, then BID prn. 3. Bullae wound, R dorsal foot: Patient re-exacerbated it with persistent rubbing. Home Health continues wound care. Encourage staff to check regularly during night to re-wrap foot in protective cloth. Resident removes it during the night. It is likely related to her persistent and neuropsychic pruritus. Continue mirtazapine 15mg (helps itching), cetaphil, doxepine, and non-use of facility soap. 4. Anorexia: Improved. Weight continues to be stable around 149 lbs. She enjoys the Ensure. Continue mirtazapine 15 mg. Follow up next week with facility re: cough, and having staff regularly check foot wrapping Q shift, especially night. Time Spent: 30 minutes with greater than 50% of this done in coordination and evaluation of respiratory symptoms, coordination of care and weighing different interventions.
== END 2017-01-15 13:16 | disposition home or self-care (01) ==
LOC: PC 13:15
PROVIDERS: ATTEND Nurse Practitioner
DX: Z51.5 Encounter for palliative care (principal); R05 Cough; H10.13 Acute atopic conjunctivitis, bilateral; F32.9 Major depressive disorder, single episode, unspecified; R23.8 Other skin changes; L29.8 Other pruritus; R63.0 Anorexia; Z99.3 Dependence on wheelchair; F01.50 Vascular dementia, unspecified severity, without behavioral disturbance, psychotic disturbance, mood disturbance, and anxiety; I25.10 Atherosclerotic heart disease of native coronary artery without angina pectoris; F10.11 Alcohol abuse, in remission; Z91.81 History of falling; Z86.19 Personal history of other infectious and parasitic diseases; Z87.81 Personal history of (healed) traumatic fracture; Z66 Do not resuscitate; Z87.01 Personal history of pneumonia (recurrent)

== ENCOUNTER 2017-01-19 14:45 | Outpatient (CLI) | payer MEDICARE, BC ==
--- NOTE | 2017-01-19 20:43 | CONSULTATION NOTE ---
Palliative Care Follow Up - Referral Referring Provider: ROEL Ball Time of Visit: 14:45 Referral setting: Assisted living (Patient is seen in her home setting, which is the dementia unit at [facility] assisted [facility] facility. It is a taxing and considerable effort for her to leave the facility due to dementia and being wheelchair bound, and it is necessary to review facility's records.) - Information Sources Records reviewed: RN notes reviewed, Previous records reviewed History/Review of Systems obtained from: Patient, Nursing (brandie) Exam limitations: Clinical condition (dementia) - History of Present Illness Update Brief HPI Update: This is a pleasant 85-year-old woman with vascular dementia, etiology most likely severe alcohol abuse, coronary artery disease, history of small frequent strokes and h/o R hip trochanter fracture s/p ORIF. Patient was seen for acute, new onset productive cough last Wednesday (4 days ago) , and started on guaifenesin and benzonatate PRN, and Patanol eye drops routine for 7 days for symptom control. Today I followed up to see her progress. Her cough has improved and she reports feeling much better. She was the most animated and engaged I have seen her since I started assessing her several months ago. She was lying in her bed, and normally she is up and in her wheelchair. She did say that her mother came to visit her and "it was the best thing." This may indicate a transition toward end of life. She is otherwise clear and alert and very interactive. She also mentioned a second brother whom I was not aware of, whose name is Brian. She wants me to talk to him and make my own comparison between her brothers. The other brother is Boaz, whom I speak to after every visit to the patient. I suggested giving her the cough medication routinely, instead of PRN for a few days to alleviate the discomfort, and she agreed to that. Nursing reports she ate breakfast well, but has not eaten lunch. They also note her cough has improved. I reminded them about checking the foot wrapping at night and replacing it when she removes it. I did show the patient photos of her right foot wounds, hoping to influence her about not rubbing her right foot and causing further skin damage. Home Health Wound Nurse is due for a follow up visit today or tomorrow. Social History - Living Situation Living arrangement: Assisted living ([facility]) Living Situation: With caregiver(s) Support System: Her brother Boaz lives nearby. She also mentioned today a second brother, Brian. Medications/Allergies - Medications Home Medications: Ambulatory Orders Medication Instructions Recorded Confirmed Clopidogrel [Plavix] 75 mg PO DAILY 04/12/15 11/18/16 Levothyroxine [Synthroid] 50 mcg PO DAILY 04/12/15 01/15/17 Doxepin [SINEquan] 25 mg PO QPM 07/17/16 11/18/16 Famotidine [Pepcid] 20 mg PO DAILY 07/17/16 01/15/17 metFORMIN [Glucophage] 500 mg PO DAILY 07/17/16 01/15/17 Hydrocodone/Acetaminophen [[place] 0.5 tab PO Q4H PRN 07/21/16 01/15/17 5-325 Tablet] Mirtazapine 15 mg PO QPM 10/09/16 01/15/17 Eucerin Cream 454gm 1 ea TOP PRN PRN 11/18/16 01/15/17 Lactose-Reduced Food [Ensure 1 bottle PO TID 11/18/16 01/15/17 Compact] Loperamide [Imodium] 2 mg PO PRN PRN MDD 16 mg daily 11/18/16 01/15/17 Metoprolol Tartrate [Lopressor] 12.5 mg PO BID 11/18/16 01/15/17 Nitroglycerin [Nitrostat] 0.4 mg SL Q5MIN PRN 11/18/16 01/15/17 Polyethylene Glycol 3350 [Miralax] 17 gm PO DAILY 11/18/16 01/15/17 Triamcinolone 0.5% Cream [Kenalog 1 each TOP BID MDD for 10 days 11/18/16 0.5% Cream] Benzonatate 100 mg PO TID PRN 01/15/17 01/15/17 Guaifenesin [Tussin] 10 ml PO Q6H PRN 01/15/17 01/19/17 Benzonatate 100 mg PO TID MDD for 3 days, then 01/19/17 01/19/17 back to prn Guaifenesin [Tussin] 10 ml PO TID MDD for 3 days, then 01/19/17 01/19/17 back to PRN Olopatadine HCl [Patanol] 1 drops EACHEYE BID MDD x 7 days, 01/19/17 01/19/17 then PRN - Allergies Allergies/Adverse Reactions: Allergies Allergy/AdvReac Type Severity Reaction Status Date / Time Calcium Channel Blocking Allergy Unknown Verified 10/15/15 15:18 Agent Dilt diclofenac sodium * Allergy Unknown Verified 10/15/15 15:18 [From Voltaren] diltiazem Allergy Unknown Verified 10/15/15 15:18 Iodinated Contrast- Oral and Allergy Unknown Verified 10/15/15 15:18 IV Dye [Iodinated Contrast Media - IV Dye] iodine Allergy Unknown Verified 10/15/15 15:18 metoclopramide Allergy Unknown Verified 10/15/15 15:18 Review of Systems - Constitutional Constitutional: denies: Fever, Chills - Cardiovascular Cardiovascular: denies: Chest pain, Syncope, Exertional dyspnea - Respiratory Respiratory: reports: Cough (improved), Sputum production. denies: SOB at rest , SOB with exertion - Gastrointestinal Gastrointestinal: denies: Constipation, Diarrhea, Change in bowel habits - Genitourinary Genitourinary: denies: Dysuria, Frequency, Urgency Physical Exam - Vital Signs Temperature: 97.9 F Pulse Rate: 79 O2 Saturation: 98 Blood Pressure: 140/80 - Physical Exam General Appearance: positive: No acute distress, Alert Eyes Bilateral: positive: EOMI, No lid inflammation, Conjunctivae nml ENT: positive: No signs of dehydration Neck: positive: Thyroid nml, No JVD, Trachea midline Cardiovascular: positive: Regular rate & rhythm, No murmur, No gallop Respiratory: positive: Chest non-tender, No respiratory distress, Breath sounds nml Skin: positive: Wound (R dorsal foot, clean, dry dressing) Neurologic/Psychiatric: positive: Motor nml, Sensation nml, Mood/affect nml Palliative Care - POLST Patient has POLST: Yes POLST Status: DNR, Comfort Measures Pain: No pain Tiredness/Fatigue: None Drowsiness/Sedation: None Nausea: None Depression: Mild (1-3) Anxiety: None Dyspnea: None Anorexia: Mild (1-3) Sleep: Sleeps well Constipation: No Feelings of wellbeing/Perceived Quality of Life: Poor (She has commented that it 's "good enough," but she doesn't want to be here. She has noted that others seem to accept being "here" ([facility]) more than she does.) Performance Status: Current level of functioning: Stable, wheelchair bound. Cough persisting but improved. Able to feed self, some decline in appetite. Requires help with ADLs. Right foot wound recently exacerbated due to patient's continued rubbing of feet. Provided education to patient, and reminder to nurse staff to monitor each shift and replace protective wrapping when patient removes it. Palliative Care Performance Status: 50% - Palliative Care Discussion: Who is present: The patient and myself. She was reclining in her bed during this assessment. Surrogate decision maker: Boaz Johnson, brother/DPOA. Most important goals: Comfort care and control of acute respiratory infection symptoms, which persist but are improving. Continue wound care for R foot bullae, monitor that foot is protected and educate care giving staff on monitoring for behaviors and keeping protective wrap on the foot at night. Monitor for decline in overall function and cognition, transitioning to end of life and admit to Hospice when appropriate. Her recent visions of having her mother visit her may indicate the start of a transition. Impression and Recommendations - Palliative Care Impression: This is a pleasantly demented 86-year-old woman with chronic depression and recurrent wound on R foot due to a combination of vascular disease and self- inflicted damage caused by neuropsych rubbing at night. She has a viral respiratory infection which shows some improvement in symptoms. Continue to monitor respiratory symptoms and also for appropriate transition to end of life and Hospice. Recommendations/Counseling Done: 1. Cough: Change guaifenesin 100mg/5ml, 10ml to TID routine for 3 days, and benzonatate 100mg capsule to TID routine, both for three days, then return to PRN dosage. Continue to monitor for symptom exacerbation, she has h/o pneumonia. 2. Allergic conjunctivitis: Improved. Continue and completed the patanol ophthalmic drops in both eyes BID for 7 days, then BID prn. 3. Bullae wound, R dorsal foot: Continue Home Health management of wound care. Monitor for patient's foot rubbing behavior, educated patient and care staff on monitoring and maintaining protective wrap. Time Spent: 30 minutes with greater than 50% of this done in coordination and evaluation of respiratory symptoms, coordination of care of foot wounds and viral infections, and weighing different interventions.
== END 2017-01-19 14:46 | disposition home or self-care (01) ==
LOC: PC 14:45
PROVIDERS: ATTEND Nurse Practitioner
DX: Z51.5 Encounter for palliative care (principal); R05 Cough; H10.13 Acute atopic conjunctivitis, bilateral; S91.301A Unspecified open wound, right foot, initial encounter; X58.XXXA Exposure to other specified factors, initial encounter; L98.1 Factitial dermatitis; I25.10 Atherosclerotic heart disease of native coronary artery without angina pectoris; F01.50 Vascular dementia, unspecified severity, without behavioral disturbance, psychotic disturbance, mood disturbance, and anxiety; F32.9 Major depressive disorder, single episode, unspecified; Z99.3 Dependence on wheelchair; Z79.02 Long term (current) use of antithrombotics/antiplatelets; Z66 Do not resuscitate; Z87.01 Personal history of pneumonia (recurrent)

== ENCOUNTER 2017-02-17 15:25 | Outpatient (CLI) | payer MEDICARE, BC ==
--- NOTE | 2017-02-17 20:09 | CONSULTATION NOTE ---
Palliative Care Follow Up - Referral Referring Provider: Jasmin Ball PA-C Time of Visit: 15:25 Referral setting: Assisted living (Patient is seen in home setting, which is [facility], due to taxing and considerable effort required for her leave the facility due to dementia and being wheelchair bound, and it is necessary to review facility's records.) - Information Sources Records reviewed: RN notes reviewed, Previous records reviewed History/Review of Systems obtained from: Patient, Family, Nursing Exam limitations: Clinical condition (advanced dementia) - History of Present Illness Update Brief HPI Update: This is pleasant 85-year-old woman with vascular dementia, etiology most likely severe alcohol abuse, coronary artery disease, history of small frequent strokes and h/o R hip trochanter fracture s/p ORIF. She has recurring blister-type wounds on the dorsal surface of R foot which Home Health nursing has been managing since December. The wounds are not healing ; they are likely related to peripheral vascular disease. [facility] recommends referral to dermatology for evaluation and treatment. I spoke with [facility] nursing today and when they presented it to the patient's brother and DPOA, Boaz, he declined, as he is skeptical that "trundling her around" won' t make any difference to the ultimate outcome and he does not want to disrupt the patient, transportation is a problematic issue, and the goals of care are to keep her comfortable. I spoke to the patient and she was in agreement that she did not want to go to a specialist, or leave the facility. The DPOA agrees to the plan for nursing to train the facility nursing the wound care processes so they can take over the management of the wounds. Palliative Care will continue oversight. The patient has no other new issues. She has been very stable recently, with improved appetite and stable weight around 148-150 lbs. She has a history of depression and states today that she is doing well. When I inquired how she felt about her quality of life, she felt it was "good." This is in contrast to how she has felt in the past, when she stated she has not been happy living in the facility. The allergic conjunctivitis has cleared up, and chronic pruritus has been asymptomatic. Social History - Living Situation Living arrangement: Assisted living Living Situation: With caregiver(s) (Brother/DPOA Boaz lives in the area.) Medications/Allergies - Medications Home Medications: Ambulatory Orders Medication Instructions Recorded Confirmed Clopidogrel [Plavix] 75 mg PO DAILY 04/12/15 02/17/17 Levothyroxine [Synthroid] 50 mcg PO DAILY 04/12/15 02/17/17 Doxepin [SINEquan] 25 mg PO QPM 07/17/16 02/17/17 Famotidine [Pepcid] 20 mg PO DAILY 07/17/16 02/17/17 Hydrocodone/Acetaminophen [[place] 0.5 tab PO Q4H PRN 07/21/16 02/17/17 5-325 Tablet] Mirtazapine 15 mg PO QPM 10/09/16 02/17/17 Eucerin Cream 454gm 1 ea TOP PRN PRN 11/18/16 02/17/17 Lactose-Reduced Food [Ensure 1 bottle PO TID 11/18/16 02/17/17 Compact] Loperamide [Imodium] 2 mg PO PRN PRN MDD 16 mg daily 11/18/16 02/17/17 Metoprolol Tartrate [Lopressor] 12.5 mg PO BID 11/18/16 02/17/17 Nitroglycerin [Nitrostat] 0.4 mg SL Q5MIN PRN 11/18/16 02/17/17 Polyethylene Glycol 3350 [Miralax] 8.5 gm PO DAILY 11/18/16 02/17/17 Triamcinolone 0.5% Cream [Kenalog 1 each TOP BID MDD for 10 days 11/18/16 0.5% Cream] Benzonatate 100 mg PO TID PRN 01/15/17 02/17/17 Guaifenesin [Tussin] 10 ml PO Q6H PRN 01/15/17 02/17/17 Eucerin Cream 454gm 1 ea TOP BID 02/17/17 Milk Of Magnesia 30 ml PO PRN PRN 02/17/17 Multivitamin [Multiple Vitamins] 1 tab PO DAILY 02/17/17 02/17/17 metFORMIN [Glucophage] 850 mg PO BID 02/17/17 02/17/17 - Allergies Allergies/Adverse Reactions: Allergies Allergy/AdvReac Type Severity Reaction Status Date / Time Calcium Channel Blocking Allergy Unknown Verified 10/15/15 15:18 Agent Dilt diclofenac sodium * Allergy Unknown Verified 10/15/15 15:18 [From Voltaren] diltiazem Allergy Unknown Verified 10/15/15 15:18 Iodinated Contrast- Oral and Allergy Unknown Verified 10/15/15 15:18 IV Dye [Iodinated Contrast Media - IV Dye] iodine Allergy Unknown Verified 10/15/15 15:18 metoclopramide Allergy Unknown Verified 10/15/15 15:18 Review of Systems - Constitutional Constitutional: reports: Weakness, Weight stable (currently ranging from 148.3 lbs to 151 lbs). denies: Poor appetite - Ears, Nose & Throat Ears, Nose & Throat: reports: Hearing loss - Cardiovascular Cardiovascular: denies: Chest pain, Edema - Respiratory Respiratory: denies: Cough, SOB at rest - Gastrointestinal Gastrointestinal: denies: Abdominal pain, Constipation, Nausea - Genitourinary Genitourinary: denies: Dysuria, Frequency - Musculoskeletal Musculoskeletal: denies: Back pain - Neurological Neurological: reports: Memory problems - Psychiatric Psychiatric: denies: Depression - Endocrine Endocrine: reports: Hypothyroidism Physical Exam - Vital Signs Temperature: 98.1 F Pulse Rate: 55 O2 Saturation: 95 Blood Pressure: 128/75 - Physical Exam General Appearance: positive: No acute distress, Lethargic Eyes Bilateral: positive: EOMI, No lid inflammation, Conjunctivae nml, No scleral icterus ENT: positive: No signs of dehydration Neck: positive: Thyroid nml, No JVD, Trachea midline Cardiovascular: positive: Regular rate & rhythm, No murmur, No gallop Respiratory: positive: Chest non-tender, No respiratory distress, Diminished throughout. negative: Rales Skin: positive: Wound (R foot, dorsal surface, chronic, recurring blisters conglomerating. May be related to PVD.) Extremities: positive: No pedal edema Neurologic/Psychiatric: positive: Disoriented to time, Weakness, Flat affect Palliative Care - POLST Patient has POLST: Yes POLST Status: DNR, Comfort Measures Pain: No pain Tiredness/Fatigue: Mild (1-3) Drowsiness/Sedation: Mild (1-3) Nausea: None Depression: None Anxiety: None Dyspnea: None Anorexia: Mild (1-3) Sleep: Sleeps well Constipation: No, Managed Feelings of wellbeing/Perceived Quality of Life: Good Performance Status: Current level of functioning: Decline has stabilized at a new baseline: wheelchair bound, requires help with transfers; feeds self, assistance with ADLs. Recurring, non-healing R foot wounds/blisters on dorsal surface - Palliative Care Discussion: Who is present: Patient and myself. Surrogate decision maker: Boaz Johnson, brother/DPOA. Most important goal: Comfort. Nursing proposed a consultation with aspnet developer for evaluation and treatment of chronic, recurring blisters on R foot dorsal surface. Home [facility] wound care nurse has been treating the wounds for over two months without progress. Foot continues to be wrapped at night to prevent patient from rubbing feet together and exacerbating the skin damage. The current plan is to have Home Health nursing train facility nursing on careing for this wound and they will take over from Home Health. Will monitor for signs of infection, and treat as appropriate. Impression and Recommendations - Palliative Care Impression: This is a pleasantly demented 86-year-old woman with chronic depression and chronic, recurring blister wounds on R foot. Her depression is well managed currrently, she is not complaining of fatigue or feeling down. Home Health is currently managing the wound care but will train and have facility staff assume care for her wounds. Family has chosen not to follow up with dermatology consult , as recommended by Home Health, so manage the wounds with comfort as goal. Recommendations/Counseling Done: Dementia with depression: Improved; no behaviors and no complaint of depression from patient. Nursing reports she has been stable. Continue mirtazapine 15 mg. Pruritus: Stable, no symptoms. Continue doxepin and mirtazapine. R foot chronic bullae wounds: Not resolving. Etiology unknown, likely peripheral vascular disease. Home Health will train facility staff and hand off wound care to them. Family declines to consult with dermatology for evaluation and treatment. Nursing to continue on-going wound care management and monitor for changes, infection. Home Health can be brought back in for evaluation and updating the wound care plan and provide further training for staff as needed. Anorexia: Currently appears resolved. Weight is very stable, around 148-151 lbs. Cough: Improved, possibly a viral infection. Benzonatate and guaifenesin prn for symptom control. DM II: Metformin increased to 850mg BID very recently by PCP. Allergic conjunctivitis: Resolved. Olopatadine regimen completed and eye drops completed on 22 January. Advanced care planning: Goal is comfort. POLST is in place. She is quite frail and her functional and cognitive decline is currently very gradual, and her weight has stabilized, so she does not currently meet medical criteria for Hospice; monitor and transition when appropriate. Follow up every 4-6 weeks, or as needed. Time Spent: 15 minutes were spent with more than 50% of the time spent on counseling, education, and coordination of care.
== END 2017-02-17 15:26 | disposition home or self-care (01) ==
LOC: PC 15:25
PROVIDERS: ATTEND Nurse Practitioner
DX: Z51.5 Encounter for palliative care (principal); F03.90 Unspecified dementia, unspecified severity, without behavioral disturbance, psychotic disturbance, mood disturbance, and anxiety; F32.9 Major depressive disorder, single episode, unspecified; L29.9 Pruritus, unspecified; S90.821D Blister (nonthermal), right foot, subsequent encounter; E11.9 Type 2 diabetes mellitus without complications; Z79.4 Long term (current) use of insulin; Z79.891 Long term (current) use of opiate analgesic; R53.1 Weakness; Z66 Do not resuscitate; Z99.3 Dependence on wheelchair

== ENCOUNTER 2017-03-25 12:15 | Outpatient (CLI) | payer MEDICARE, BC ==
--- NOTE | 2017-03-25 18:05 | CONSULTATION NOTE ---
Palliative Care Follow Up - Referral Referring Provider: Jasmin Ball PA-C Time of Visit: 03/25/17 12:15 Referral setting: Assisted living (Seen in home setting due to taxing and considerable effort required to leave the home secondary to dementia and being wheelchair-bound. Also I require access to patient's medical records at the facility.) - Information Sources Records reviewed: RN notes reviewed, Previous records reviewed History/Review of Systems obtained from: Patient, Nursing Exam limitations: Clinical condition (Dementia) - History of Present Illness Update Brief HPI Update: This is a pleasant 86-year-old woman with vascular dementia, etiology most likely severe alcohol abuse, coronary artery disease, PVD, h/o small frequent strokes and h/o R hip trochanter fracture s/p ORIF. She was discharged from [facility] nursing for wound care in February because of non-progress, and the wound care nurse trained the facility nurses in wound care for her chronic wounds on R foot, etiology is likely vascular. Today she presents with red, swollen, slightly tender right foot, and the chronic bullae wounds are crusted and seeping. She has mild redness of medial calf. It appears to be cellulitis of the chronic wound. She also has low blood pressure, possibly related to the infection. Nursing has reported loose stools recently, Miralax has been on hold; I will DC it. The patient is seated at the dining room table, and is sleeping while sitting up. She has not touched her food. She rouses when I speak to her, but is lethargic, and goes back to sleep. Nursing reports she sleeps a lot at meals, and doesn't seem to care for her food, but does drink Ensure. She does sleep a lot and her appetite has decreased. When I ask how she is doing, she responds "better than I could have expected." Social History - Living Situation Living arrangement: Assisted living ([facility] unit) Living Situation: With caregiver(s) Support System: Her brother, Boaz, lives nearby and his her DPOA. Medications/Allergies - Medications Home Medications: Ambulatory Orders Medication Instructions Recorded Confirmed Clopidogrel [Plavix] 75 mg PO DAILY 04/12/15 02/17/17 Levothyroxine [Synthroid] 50 mcg PO DAILY 04/12/15 02/17/17 Doxepin [SINEquan] 25 mg PO QPM 07/17/16 02/17/17 Famotidine [Pepcid] 20 mg PO DAILY 07/17/16 02/17/17 Hydrocodone/Acetaminophen [[place] 0.5 tab PO Q4H PRN 07/21/16 02/17/17 5-325 Tablet] Mirtazapine 15 mg PO QPM 10/09/16 02/17/17 Eucerin Cream 454gm 1 ea TOP PRN PRN 11/18/16 02/17/17 Lactose-Reduced Food [Ensure 1 bottle PO TID 11/18/16 02/17/17 Compact] Loperamide [Imodium] 2 mg PO PRN PRN MDD 16 mg daily 11/18/16 02/17/17 Metoprolol Tartrate [Lopressor] 12.5 mg PO BID 11/18/16 02/17/17 Nitroglycerin [Nitrostat] 0.4 mg SL Q5MIN PRN 11/18/16 02/17/17 Triamcinolone 0.5% Cream [Kenalog 1 each TOP BID MDD for 10 days 11/18/16 0.5% Cream] Benzonatate 100 mg PO TID PRN 01/15/17 02/17/17 Guaifenesin [Tussin] 10 ml PO Q6H PRN 01/15/17 02/17/17 Eucerin Cream 454gm 1 ea TOP BID 02/17/17 Milk Of Magnesia 30 ml PO PRN PRN 02/17/17 Multivitamin [Multiple Vitamins] 1 tab PO DAILY 02/17/17 02/17/17 metFORMIN [Glucophage] 850 mg PO BID 02/17/17 02/17/17 Lactobacillus Acidophilus 1 tab PO BID 03/27/17 03/27/17 [Probiotic Acidophilus] Sulfamethox/Trimeth 800/160 1 tab PO BID MDD for 5 days 03/27/17 [Bactrim Ds] - Allergies Allergies/Adverse Reactions: Allergies Allergy/AdvReac Type Severity Reaction Status Date / Time Calcium Channel Blocking Allergy Unknown Verified 10/15/15 15:18 Agent Dilt diclofenac sodium * Allergy Unknown Verified 10/15/15 15:18 [From Voltaren] diltiazem Allergy Unknown Verified 10/15/15 15:18 Iodinated Contrast- Oral and Allergy Unknown Verified 10/15/15 15:18 IV Dye [Iodinated Contrast Media - IV Dye] iodine Allergy Unknown Verified 10/15/15 15:18 metoclopramide Allergy Unknown Verified 10/15/15 15:18 Review of Systems - Constitutional Constitutional: reports: Poor appetite, Weight stable (150.4 lbs 03/23/17. 150.8 lbs 03/16/17. 148.6 lbs 05/10/16. 149.8 lbs 03/02/17. 152 lbs 02/23/17. Continue weekly weights.) - Ears, Nose & Throat Ears, Nose & Throat: reports: Hearing loss - Cardiovascular Cardiovascular: denies: Chest pain, Edema - Respiratory Respiratory: denies: Cough, SOB at rest - Genitourinary Genitourinary: denies: Dysuria, Frequency - Musculoskeletal Musculoskeletal: reports: Assistive devices (wheelchair) - Integumentary Integumentary: reports: Lesions (R foot, dorsal, chronic vascular wounds) - Neurological Neurological: reports: Memory problems Physical Exam - Vital Signs Temperature: 96.8 F Pulse Rate: 66 O2 Saturation: 95 Blood Pressure: 92/60 - Physical Exam General Appearance: positive: No acute distress, Lethargic Eyes Bilateral: positive: EOMI, No lid inflammation, Conjunctivae nml, No scleral icterus ENT: positive: No signs of dehydration Neck: positive: Thyroid nml, No JVD, Trachea midline Cardiovascular: positive: Regular rate & rhythm, No murmur, No gallop Respiratory: positive: Chest non-tender, No respiratory distress, Breath sounds nml Skin: positive: Wound (chronic bullae, R dorsal foot, red and swollen.) Extremities: positive: No pedal edema, Other (mild redness on medial R calf) Neurologic/Psychiatric: positive: Sensation nml, Disoriented to time, Flat affect Palliative Care - POLST Patient has POLST: Yes POLST Status: DNR, Comfort Measures Sleep: Variable sleep pattern (increased sleeping) Constipation: No - Palliative Care Discussion: The patient's chronic foot wound, from vascular compromise, worsened after Home Health discontinued wound care due to non-progress. Nursing reported that it worsened after wound care stopped, and now it looks better. It appears she has a cellulitis on the R foot. I will order antibiotics, monitor, and depending on the outcome, may bring Home Health wound care back. The patient is sleeping more and more, and has less appetite. So far her weight is fairly stable. She might be transitioning to end of life, and I discussed this possibility with her brother, Boaz. He was not surprised; he has observed he steadily declining state for awhile. He reiterated that the important thing is to keep her comfortable and not prolong suffering. He is, as always, very appreciative of the support we provide. Impression and Recommendations - Palliative Care Impression: This is a pleasantly demented 86-year-old woman with chronic depression and chronic wounds of R foot, now with cellulitis. She is sleeping more and has a decreased appetite, although her weight is fairly stable. She may be transitioning to end of life, and palliative care will continue to monitor and recommend transition to Hospice when appropriate. Recommendations/Counseling Done: Dementia with depression: Stable, no behaviors. Cntinue mirtazapine 15 mg. R foot chronic wound: Home Health nursing wound care was DC'd in February and the facility nurses trained in continuing the wound care. She has a cellulitis of the R foot. Depending on the outcome of antibiotic treatment, we may restart Home Health for wound care. Cellulitis of right foot/lower extremity: Start Bactrim DS bid x 5 days. Increase wound care to daily. Start probiotics BID x 10 days. Low BP: Encourage increased fluid intake, goal: 2 quarts daily. May be related to the infection of R foot. Monitor. Diarrhea: Loose stools persist. Discontinue Miralax. Monitor for constipation. Poor appetite: Often does not eat meals, sleeps excessively. Still drinks Ensure. Weight is stable. Continue weekly weights and monitor. Advanced care planning: I discussed her status with her brother Boaz. She is very frail, sleeping excessively, has a new infection. She may be transitioning to end of life. We will monitor and transition to Hospice when appropriate. Comfort is the goal. Time Spent: 45 minutes were spent with more than 50% of the time spent on counseling, education, and coordination of care regarding cellulitis, loose stools, advanced care planning. Provided anticipatory guidance.
== END 2017-03-25 12:16 | disposition home or self-care (01) ==
LOC: PC 12:15
PROVIDERS: ATTEND Nurse Practitioner
DX: Z51.5 Encounter for palliative care (principal); F03.90 Unspecified dementia, unspecified severity, without behavioral disturbance, psychotic disturbance, mood disturbance, and anxiety; F32.9 Major depressive disorder, single episode, unspecified; R23.8 Other skin changes; L03.115 Cellulitis of right lower limb; R19.7 Diarrhea, unspecified; R63.8 Other symptoms and signs concerning food and fluid intake; I73.9 Peripheral vascular disease, unspecified; G47.10 Hypersomnia, unspecified; Z99.3 Dependence on wheelchair; Z79.899 Other long term (current) drug therapy; Z66 Do not resuscitate

== ENCOUNTER 2017-04-06 11:05 | Outpatient (CLI) | payer MEDICARE, BC ==
--- NOTE | 2017-04-06 16:58 | CONSULTATION NOTE ---
Palliative Care Follow Up - Referral Referring Provider: Jasmin Ball PA-C Time of Visit: 04/06/17 11:05 - 11:20 Referral setting: Assisted living (Seen in home setting due to taxing and considerable effort required to leave the home secondary to dementia and being wheelchair-bound. 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 She was discharged from [facility] due [facility] nurses in wound care for the chronic R foot wounds. She had a cellulitis of the R foot nearly two weeks ago and was treated with oral Bactrim DS for 5 days, and wound care increased to daily care. Today her foot looks much improved, redness and swelling resolved, and patient denies pain. the wounds are still crusted, and skin is pinkish over a large portion of the dorsal part of the foot. Antibiotic regimen completed on March 30, a week ago (I was out sick last week and unable to follow up). She was asleep in the community room's recliner chair, but easily arousable. She has no complaints, and is very cooperative and pleasant, as usual. Her brother visited her this past weekend, and notes that she still has her dry sense of humor. He brought her a [employer] magazine, which she loves to read, and her comment was, "Oh, this means we don't have to talk to each other." Nursing aids report her eating is fairly stable, sometimes she eats well, sometimes leaves 50%, and at other times is not hungry. Her weight remains fairly stable, 149.4 lbs on 04/06/17. Social History - Living Situation Living arrangement: Assisted living ([facility]) Living Situation: With caregiver(s) Support System: Her brother, Boaz, lives nearby and visits regularly. He is her DPOA. Medications/Allergies - Medications Home Medications: Ambulatory Orders Medication Instructions Recorded Confirmed Clopidogrel [Plavix] 75 mg PO DAILY 04/12/15 04/06/17 Levothyroxine [Synthroid] 50 mcg PO DAILY 04/12/15 04/06/17 Doxepin [SINEquan] 25 mg PO QPM 07/17/16 04/06/17 Famotidine [Pepcid] 20 mg PO DAILY 07/17/16 04/06/17 Hydrocodone/Acetaminophen [[place] 0.5 tab PO Q4H PRN 07/21/16 04/06/17 5-325 Tablet] Mirtazapine 15 mg PO QPM 10/09/16 04/06/17 Eucerin Cream 454gm 1 ea TOP PRN PRN 11/18/16 04/06/17 Lactose-Reduced Food [Ensure 1 bottle PO TID 11/18/16 04/06/17 Compact] Loperamide [Imodium] 2 mg PO PRN PRN MDD 16 mg daily 11/18/16 04/06/17 Metoprolol Tartrate [Lopressor] 12.5 mg PO BID 11/18/16 04/06/17 Nitroglycerin [Nitrostat] 0.4 mg SL Q5MIN PRN 11/18/16 04/06/17 Triamcinolone 0.5% Cream [Kenalog 1 each TOP BID MDD for 10 days 11/18/16 0.5% Cream] Benzonatate 100 mg PO TID PRN 01/15/17 04/06/17 Guaifenesin [Tussin] 10 ml PO Q6H PRN 01/15/17 04/06/17 Eucerin Cream 454gm 1 ea TOP BID 02/17/17 04/06/17 Milk Of Magnesia 30 ml PO PRN PRN 02/17/17 04/06/17 Multivitamin [Multiple Vitamins] 1 tab PO DAILY 02/17/17 04/06/17 metFORMIN [Glucophage] 850 mg PO BID 02/17/17 04/06/17 - Allergies Allergies/Adverse Reactions: Allergies Allergy/AdvReac Type Severity Reaction Status Date / Time Calcium Channel Blocking Allergy Unknown Verified 10/15/15 15:18 Agent Dilt diclofenac sodium * Allergy Unknown Verified 10/15/15 15:18 [From Voltaren] diltiazem Allergy Unknown Verified 10/15/15 15:18 Iodinated Contrast- Oral and Allergy Unknown Verified 10/15/15 15:18 IV Dye [Iodinated Contrast Media - IV Dye] iodine Allergy Unknown Verified 10/15/15 15:18 metoclopramide Allergy Unknown Verified 10/15/15 15:18 Review of Systems - Constitutional Constitutional: reports: Fatigue, Weakness, Weight stable (149.4 lbs on . 148.6 lbs on 03/09/17. 151 lbs on 01/19/17. 148.6 lbs on 10/27/16.) - Ears, Nose & Throat Ears, Nose & Throat: reports: Hearing loss - Cardiovascular Cardiovascular: denies: Chest pain, Edema, Exertional dyspnea - Respiratory Respiratory: denies: Cough, Wheezing, SOB at rest - Gastrointestinal Gastrointestinal: denies: Constipation, Diarrhea - Genitourinary Genitourinary: denies: Dysuria, Frequency, Urgency - Musculoskeletal Musculoskeletal: reports: Assistive devices (wheelchair) - Integumentary Integumentary: reports: Lesions (chronic vascular wounds on R dorsal foot) - Neurological Neurological: reports: Memory problems Physical Exam - Vital Signs Temperature: 96.9 F Pulse Rate: 76 O2 Saturation: 99 Blood Pressure: 120/72 - Physical Exam General Appearance: positive: No acute distress, Lethargic Eyes Bilateral: positive: EOMI, No lid inflammation, Conjunctivae nml, No scleral icterus ENT: positive: Pharynx nml, No signs of dehydration Neck: positive: Thyroid nml, No JVD, Trachea midline Cardiovascular: positive: Regular rate & rhythm, No murmur Respiratory: positive: No respiratory distress, Breath sounds nml, Diminished throughout Skin: positive: Wound (Chronic bullae lesions, crusting and dried, with pinkish skin over abuot half of dorsal surface of R foot. Improved from previous visit , after antibiotic regimen.) Extremities: positive: Nml appearance, No pedal edema Neurologic/Psychiatric: positive: Motor nml, Disoriented to time, Weakness, Flat affect Palliative Care - POLST Patient has POLST: Yes POLST Status: DNR, Comfort Measures Pain: No pain Sleep: Variable sleep pattern (Sleeps excessively) Constipation: No (DC'd Miralax) - Palliative Care Discussion: The patient had a cellulitis of R lower extremity in the region of her chronic lesions, likely vascular in origin. A 5-day round of Bactrim DS cleared the cellulitis. The lesions are still crusty but have improved, and the skin is no longer red and swollen. Will consult with the Home Health employment agency manager (she is currently out sick) about reinstating the patient to for on-going wound care, since her wounds did better under Home Health management, even though they did not, and will not completely heal. The other option is to have her wound care remain with the facility nursing staff and monitor it closely. They make dressing changes every other day to every three days. I discussed these options with her brother, who, as always, was agreeable to any of our suggestions and recommendations. Impression and Recommendations - Palliative Care Impression: This is a pleasantly demented 86-year-old woman with chronic depression and chronic wounds of R foot. Her recent cellulitis of the R foot cleared up with a round of oral antibiotics. She continues to sleep excessively, and is slowly declining. It may be beneficial to reinstate her with Home Health Nursing for managing her chronic R foot wounds. Palliative care will continue to monitor and will transition her to Hospice when appropriate. Recommendations/Counseling Done: Diarrhea: Miralax was DC'd around 03/27/17 due to persistent loose stools. She is having regular bowel movements most days. So no need currently for anti- constipation medications. Poor appetite: Her appetite continues to be fluctuate, sometimes eating her meals, other times not. Weight has been stable since October 2016, around high 140s to 150 lbs. It was 149.4 lbs today. Continue to monitor weights weekly Chronic wounds of R foot: Improved, celllulitis cleared after 5-day course of Bactrim DS two weeks ago. Will consult with Home Health Layout Man about reinstating patient to wound care management, until end of life. She appears to do better with wound care oversight. Advanced care planning: Discussed her status with Boaz, he is aware she is fragile and slowly declining. Will continue to monitor and transition to Hospice when appropriate. Time Spent: 15 minutes were spent with more than 50% of the time spent on counseling and coordination of care regarding chronic wound on R foot.
== END 2017-04-06 11:06 | disposition home or self-care (01) ==
LOC: PC 11:05
PROVIDERS: ATTEND Nurse Practitioner
DX: Z51.5 Encounter for palliative care (principal); R19.7 Diarrhea, unspecified; R63.0 Anorexia; L98.9 Disorder of the skin and subcutaneous tissue, unspecified; F01.50 Vascular dementia, unspecified severity, without behavioral disturbance, psychotic disturbance, mood disturbance, and anxiety; I25.10 Atherosclerotic heart disease of native coronary artery without angina pectoris; I73.9 Peripheral vascular disease, unspecified; F10.10 Alcohol abuse, uncomplicated; Z86.73 Personal history of transient ischemic attack (TIA), and cerebral infarction without residual deficits; Z99.3 Dependence on wheelchair; Z79.02 Long term (current) use of antithrombotics/antiplatelets

== ENCOUNTER 2017-04-21 12:30 | Outpatient (CLI) | payer MEDICARE, BC ==
--- NOTE | 2017-04-21 23:53 | CONSULTATION NOTE ---
Palliative Care Follow Up - Referral Referring Provider: Jasmin Ball PA-C Time of Visit: 03/21/2017 12:30 - 12:45 Referral setting: Assisted living (Seen in home setting due to taxing and considerable effort required to leave the facility secondary to dememtia and being wheelchair-bound. Also I require access to patient's medical records at the facility.) - Information Sources History/Review of Systems obtained from: Patient, Nursing Exam limitations: Clinical condition (Dementia) - History of Present Illness Update Brief HPI Update: [facility] for wound care: Patient has recurring and non-resolving wounds on dorsal surface of R foot, with several bullae that form, burst, reform. It is likely vascular in etiology. Home Health nursing provided wound care for several months last year , and DC'd the patient once the wounds stabilized. Since discharge, the patient had a cellulitis of the foot, resolved with oral antibiotics. In addition, the wounds have worsened and are tender to the touch. Due to the recurrent and non- resolving nature of the wounds, the patient will benefit from ongoing wound care oversight and management by the nursing team with the goal of managing the wound so it does not worsen or become infected, without necessarily resolving the wound. Perhaps the wound nurse could schedule visits weekly, while having the facility's nursing staff change dressings in between visits. This is a pleasant 86-year-old woman with vascular dementia, etiology most likely severe alcohol abuse, coronary artery disease, h/o small frequent strokes , depression, h/o pruritus. She fell and fracture her R hip s/p ORIF in July 2016 , and suffered a C diff infection during her recovery. Earlier this week, on 04/19/17, she had an episode of unresponsiveness for approximately 3 minutes wile sitting on the toilet. She reported being cold. She was not straining, and had a soft bowel movement. Her brother saw her the day after the episode, and noted that she was dramatically different than normal. She showed no interest in the magazines or monet he brought, which is not typical; she didn't engage in conversation and eventually dozed off for 15 minutes. Today at my visit she is awake, alert, answers questions, and is very pleasant. She reports increased fatigue and I have often observed her dozing in her recliner or at the dining room table. She has a h/o small, frequent strokes and this may have been what the recent episode was. She exhibits no residual effects or deficits. She does use mirtazapine, which is sedating, but I will continue it. We attempted to discontinue it last year and had a flair up of her pruritus. Today she is scratching at her scalp and on her upper arm. She reports her appetite is fine, and has had a few lbs weight loss: 150.4 lbs on 03/23/17, 148 lbs on 04/20/17. She continues to drink Ensure supplements. She denies depression, anxiety and "dark moods," and states, "I'm glad that is done." The chronic wounds on her dorsal surface of right foot, while not infected, are tender, have persistent seepage, and appear to have worsened since discharge of Home Health late last year. I am recommending that Home Health monitor and oversee the patient's wound care regimen on an ongoing basis. The patient's brother is in agreement with this plan. She also has a small, resolving abrasion on her L great toe which the facility is monitoring and changing dressings on. ROEL Ball, who originally referred this patient to the palliative care service, is leaving [facility], and Dr Shantel Mcgee will continue as the patient's PCP. Social History - Living Situation Living arrangement: Assisted living ([facility]) Living Situation: With caregiver(s) (Brother, Boaz, lives nearby and is her DPOA.) Medications/Allergies - Medications Home Medications: Ambulatory Orders Medication Instructions Recorded Confirmed Clopidogrel [Plavix] 75 mg PO DAILY 04/12/15 04/06/17 Levothyroxine [Synthroid] 50 mcg PO DAILY 04/12/15 04/06/17 Doxepin [SINEquan] 25 mg PO QPM 07/17/16 04/06/17 Famotidine [Pepcid] 20 mg PO DAILY 07/17/16 04/06/17 Hydrocodone/Acetaminophen [[place] 0.5 tab PO Q4H PRN 07/21/16 04/06/17 5-325 Tablet] Mirtazapine 15 mg PO QPM 10/09/16 04/06/17 Eucerin Cream 454gm 1 ea TOP PRN PRN 11/18/16 04/06/17 Lactose-Reduced Food [Ensure 1 bottle PO TID 11/18/16 04/06/17 Compact] Loperamide [Imodium] 2 mg PO PRN PRN MDD 16 mg daily 11/18/16 04/06/17 Metoprolol Tartrate [Lopressor] 12.5 mg PO BID 11/18/16 04/06/17 Nitroglycerin [Nitrostat] 0.4 mg SL Q5MIN PRN 11/18/16 04/06/17 Triamcinolone 0.5% Cream [Kenalog 1 each TOP BID MDD for 10 days 11/18/16 0.5% Cream] Benzonatate 100 mg PO TID PRN 01/15/17 04/06/17 Guaifenesin [Tussin] 10 ml PO Q6H PRN 01/15/17 04/06/17 Eucerin Cream 454gm 1 ea TOP BID 02/17/17 04/06/17 Milk Of Magnesia 30 ml PO PRN PRN 02/17/17 04/06/17 Multivitamin [Multiple Vitamins] 1 tab PO DAILY 02/17/17 04/06/17 metFORMIN [Glucophage] 850 mg PO BID 02/17/17 04/06/17 - Allergies Allergies/Adverse Reactions: Allergies Allergy/AdvReac Type Severity Reaction Status Date / Time Calcium Channel Blocking Allergy Unknown Verified 10/15/15 15:18 Agent Dilt diclofenac sodium * Allergy Unknown Verified 10/15/15 15:18 [From Voltaren] diltiazem Allergy Unknown Verified 10/15/15 15:18 Iodinated Contrast- Oral and Allergy Unknown Verified 10/15/15 15:18 IV Dye [Iodinated Contrast Media - IV Dye] iodine Allergy Unknown Verified 10/15/15 15:18 metoclopramide Allergy Unknown Verified 10/15/15 15:18 Review of Systems - Constitutional Constitutional: reports: Fatigue, Poor appetite, Weight loss (148 lbs on 04/20/17 , 150.4 lbs on 03/23/17) - Ears, Nose & Throat Ears, Nose & Throat: reports: Hearing loss - Cardiovascular Cardiovascular: denies: Palpitations, Chest pain, Edema - Respiratory Respiratory: denies: Cough, SOB at rest - Gastrointestinal Gastrointestinal: denies: Constipation, Change in bowel habits - Genitourinary Genitourinary: reports: Incontinence. denies: Dysuria - Integumentary Integumentary: reports: Lesions (tenderness on palpation of chronic wounds oo R foot, dorsal surface) - Neurological Neurological: reports: General weakness, Memory problems - Psychiatric Psychiatric: denies: Depression, Anxiety Physical Exam - Vital Signs Temperature: 97.0 F Pulse Rate: 91 O2 Saturation: 95 Blood Pressure: 132/75 - Physical Exam General Appearance: positive: No acute distress, Alert Eyes Bilateral: positive: EOMI, No lid inflammation, Conjunctivae nml, No scleral icterus ENT: positive: No signs of dehydration Neck: positive: Thyroid nml, No JVD, Trachea midline Cardiovascular: positive: Regular rate & rhythm, No gallop Respiratory: positive: No respiratory distress, Diminished throughout Skin: positive: Pruritis (scratching at scalp, arm), Wound (chronic vascular wounds on R dorsal foot, several bullae, crusting and with seepage; resolving abrasion on L great toe) Extremities: positive: Non-tender (R dorsal foot), No pedal edema Neurologic/Psychiatric: positive: Motor nml, Sensation nml, Disoriented to time , Weakness, Flat affect Palliative Care - POLST Patient has POLST: Yes POLST Status: DNR, Comfort Measures Pain: Pain worsening, Location (R dorsal foot wounds) Tiredness/Fatigue: Moderate (4-6) Drowsiness/Sedation: None Depression: None Anxiety: None Sleep: Variable sleep pattern (increased sleeping) Constipation: No, Managed Feelings of wellbeing/Perceived Quality of Life: Improved Performance Status: Increased fatigue and sleeping; brother noticed a marked difference in the patient's behavior the day after the patient's non-responsive episode: lethargic , lack of interest, somnolence. - Palliative Care Discussion: The patient's brother agreed with the plan to re-engage Home Health nursing in on-going wound care of her R foot. We discussed her steady decline in functionality and the non-responsive episode , and discussed monitoring her status and transitioning to Hospice when the time is appropriate. Her POLST is DNR and comfort measures, and so her brother is agreeable to transition to Hospice when appropriate. He had no questions at this time. Impression and Recommendations - Palliative Care Impression: This is pleasantly demented 86-year-old woman with chronic vascular wounds on R foot, and who has steadily declined in function over the past year. She would benefit from ongoing Home Health nursing management of her chronic foot wounds, and continued oversight of the palliative care team to manage her care and transition her to Hospice when appropriate and she meets the criteria. Recommendations/Counseling Done: Dementia without behaviors: Stable, slow decline in functionality and mental alertness. Chronic wounds of R foot: Referring back to Home Health nursing for oversight and management of wound care. Goal is not resolution but ongoing management to prevent infection and worsening. This would include overseeing facility nursing so they change wound dressings in between visits from Home Health. h/o small CVAs: Had a 3-minute episode of non-responsiveness earlier this week , the next day was less responsive and more lethargic during visit with brother. No other residual effects noted. Continue to monitor. Poor appetite: 2.4 lb weight loss in the past month. Continue Ensure, and weekly weights. Advanced care planning: Patient is DNR and comfort care. Monitor patient's status and transition to Hospice when appropriate. Time Spent: 15 minutes were spent with more than 50% of the time spent on counseling, education, and coordination of care.
== END 2017-04-21 12:31 | disposition home or self-care (01) ==
LOC: PC 12:30
PROVIDERS: ATTEND Nurse Practitioner
DX: Z51.5 Encounter for palliative care (principal); F01.50 Vascular dementia, unspecified severity, without behavioral disturbance, psychotic disturbance, mood disturbance, and anxiety; R23.8 Other skin changes; Z86.73 Personal history of transient ischemic attack (TIA), and cerebral infarction without residual deficits; R63.0 Anorexia; R53.83 Other fatigue; I25.10 Atherosclerotic heart disease of native coronary artery without angina pectoris; Z79.891 Long term (current) use of opiate analgesic; M62.81 Muscle weakness (generalized); Z99.3 Dependence on wheelchair; Z66 Do not resuscitate

== ENCOUNTER 2017-07-13 13:10 | Outpatient (CLI) | payer MEDICARE, BC ==
--- NOTE | 2017-07-13 19:27 | CONSULTATION NOTE ---
Palliative Care Follow Up - Referral Referring Provider: Dr Mcgee Time of Visit: 07/13/2017. 13:10 -13:40 Referral setting: Assisted living (Seen in home setting due to taxing and considerable effort required to leave the home due to dementia and now being mostly bedbound. I also require access to patient's medical records at the facility.) Referral Reason: Weight loss / failure to thrive - Information Sources Records reviewed: RN notes reviewed, Previous records reviewed History/Review of Systems obtained from: Patient, Family, Nursing Exam limitations: Clinical condition (advanced dementia) - History of Present Illness Update Brief HPI Update: -This is a pleasant 86-year-old female with vascular dementia, etiology most likely severe alcohol abuse. -Medical history: Coronary artery disease, history of small frequent strokes, depression, history of pruritus, right hip fracture S/P ORIF July 2016, history of C. difficile colitis. -Patient has been slowly declining for several months, sleeping more and more and eating less. -Last week nursing reported the patient has been bedbound, refusing meals and her energy shakes, sleeping most of the time. -Weight loss of 11% (16.4 lbs) in 3 months: 133 lbs 07/06/17 from 149.4 lbs . -During today's visit she was lethargic and sleeping and rousable only with great difficulty, and then immediately fell back into somnolence. -Nursing reports a steep decline in appetite, finishing only 15% of breakfast. -Last week she was constipated, for 6 days, unrelieved with stimulant laxative, bisacodyl suppository. She then had a large BM 07/10, but has had none since then. Bowel regimen was titrated. Social History - Living Situation Living arrangement: Assisted living ([facility]) Living Situation: With caregiver(s) Support System: Brother loree lives locally. Medications/Allergies - Medications Home Medications: Ambulatory Orders Medication Instructions Recorded Confirmed Clopidogrel [Plavix] 75 mg PO DAILY 04/12/15 07/13/17 Levothyroxine [Synthroid] 50 mcg PO DAILY 04/12/15 07/13/17 Doxepin [SINEquan] 25 mg PO QPM 07/17/16 07/13/17 Famotidine [Pepcid] 20 mg PO DAILY 07/17/16 07/13/17 Hydrocodone/Acetaminophen [[place] 0.5 tab PO Q4H PRN 07/21/16 07/13/17 5-325 Tablet] Mirtazapine 15 mg PO QPM 10/09/16 07/13/17 Lactose-Reduced Food [Ensure 1 bottle PO TID 11/18/16 07/13/17 Compact] Loperamide [Imodium] 2 mg PO PRN PRN MDD 16 mg daily 11/18/16 07/13/17 Metoprolol Tartrate [Lopressor] 12.5 mg PO BID 11/18/16 07/13/17 Nitroglycerin [Nitrostat] 0.4 mg SL Q5MIN PRN 11/18/16 07/13/17 Triamcinolone 0.5% Cream [Kenalog 1 each TOP BID MDD for 10 days 11/18/16 0.5% Cream] Benzonatate 100 mg PO TID PRN 01/15/17 07/13/17 Guaifenesin [Tussin] 10 ml PO Q6H PRN 01/15/17 07/13/17 Eucerin Cream 454gm 1 ea TOP BID 02/17/17 07/13/17 Milk Of Magnesia 30 ml PO PRN PRN 02/17/17 07/13/17 Multivitamin [Multiple Vitamins] 1 tab PO DAILY 02/17/17 07/13/17 metFORMIN [Glucophage] 850 mg PO BID 02/17/17 07/13/17 Acetaminophen 650 mg PO Q4H PRN 07/13/17 07/13/17 Bisacodyl Supp [Dulcolax Supp] 10 mg NJ PRN PRN MDD if not 07/13/17 07/13/17 relieved by MoM Enema Sodium Phosphate 133 ml NJ PRN PRN MDD if Bisacodyl 07/13/17 ineffective 4 hrs Losartan Potassium 25 mg PO DAILY 07/13/17 07/13/17 Olopatadine 0.1% Eye Drops 1 drops EACHEYE BID PRN 07/13/17 Sennosides [Senna Laxative] 8.6 mg PO BID 07/13/17 07/13/17 - Allergies Allergies/Adverse Reactions: Allergies Allergy/AdvReac Type Severity Reaction Status Date / Time Calcium Channel Blocking Allergy Unknown Verified 10/15/15 15:18 Agent Dilt diclofenac sodium * Allergy Unknown Verified 10/15/15 15:18 [From Voltaren] diltiazem Allergy Unknown Verified 10/15/15 15:18 Iodinated Contrast- Oral and Allergy Unknown Verified 10/15/15 15:18 IV Dye [Iodinated Contrast Media - IV Dye] iodine Allergy Unknown Verified 10/15/15 15:18 metoclopramide Allergy Unknown Verified 10/15/15 15:18 Review of Systems - Constitutional Constitutional: reports: Fatigue (sleeping most of time. last week refused to get out of bed.), Poor appetite, Weight loss (18 lbs in 6 months (11.9%). 133 lbs 07/06/17. 137.5 lbs 06/29/17. 142 lbs 06/15/17. 143 05/18/17. 148 lbs 04/20/17. 150.8 03/16/17. 150 lbs 02/16/17. 151 lbs 01/19/17.) - Gastrointestinal Gastrointestinal: reports: Constipation - Neurological Neurological: reports: General weakness, Memory problems - Other Findings Other Findings: unable to obtain ROS from patient, due to somnolence, dementia. Physical Exam - Vital Signs Temperature: 95.9 F Pulse Rate: 51 O2 Saturation: 95 (room air) Blood Pressure: 100/65 - Physical Exam General Appearance: positive: No acute distress, Lethargic, Other (difficult to rouse) Eyes Bilateral: positive: Conjunctivae nml, No scleral icterus Neck: positive: No JVD, Trachea midline Cardiovascular: positive: Regular rate & rhythm, No murmur Respiratory: positive: Chest non-tender, No respiratory distress, Diminished throughout Abdomen: positive: Soft Skin: positive: Wound (R dorsal wound, covered in bandages, followed by Home Health Wound Care) Neurologic/Psychiatric: positive: Oriented x3, Flat affect Palliative Care - POLST POLST Status: DNR, Comfort Measures - Palliative Care Discussion: Patient has been steadily declining in functionality for the past few months and I have discussed this previously with the patient's brother, who has agreed that she is declining. Her decline has accelerated in the past week or so, with increasing weight loss (see ROS), sleeping, decrease in appetite and function, and becoming bedbound. Her brother agrees with transitioning her to hospice and not attempting life- prolonging treatment. He has recordings of her saying she would not want to be kept alive in such a state, if her mind were no longer intact. He has noted in his visit with her last week that she was sleeping and mainly non-responsive. He did say that she would not appreciate any muslim ceremony or symbols, and would not want the services of a ship captain. Impression and Recommendations - Palliative Care Impression: This is an 86-year-old woman who has been steadily declining for some time now, with a more precipitous drop in the past week, including declining functionality , consciousness, appetite, and weight. She meets medical criteria of hospice, with excessive weight loss, being bedbound, chronic, non-healing wound, and failure to thrive secondary to advanced dementia. Hospice is in keeping with her and her family's goals of care, and her brother/DPOA agrees with transitioning her to hospice. Recommendations/Counseling Done: Weight loss: 18 lbs in 6 months (11.9%) 133 lbs on 07/06/17 from 151 lbs . She lost 7 lbs in just two weeks: 133 lbs 07/06/17. 140 lbs 06/22/17. Refusing most meals and energy shakes. Constipation: Senna 8.6mg BID, MoM if no BM in 3 days, Bisacodyl suppository if constipation not relieved by MoM. Saline enema if bowel program, Bisacodyl ineffective after 4 hours Failure to thrive secondary to advanced vascular dementia: Bedbound, sleeping the majority of the time, loss of appetite, non-healing chronic wound on R foot which is managed by Home Health nursing. Advanced care planning: POLST is DNR and comfort care. Patient meets the both medical criteria and goals of care creiteria, so palliative care recommends transitioning to Hospice care. Will consult with PCP. Patient's brother/DPOA is in agreement with Hospice, and that she remain at [facility] as it would be too traumatic for her to relocate. Time Spent: 30 minutes were spent with more than 50% of the time spent on counseling, education, and coordination of care.
== END 2017-07-13 13:11 | disposition home or self-care (01) ==
LOC: PC 13:10
PROVIDERS: ATTEND Nurse Practitioner
DX: Z51.5 Encounter for palliative care (principal); R63.4 Abnormal weight loss; R62.7 Adult failure to thrive; F01.50 Vascular dementia, unspecified severity, without behavioral disturbance, psychotic disturbance, mood disturbance, and anxiety; Z74.01 Bed confinement status; M62.81 Muscle weakness (generalized); Z66 Do not resuscitate